=== PATIENT | male | born 1965 | race Two or more races ===

== ENCOUNTER 2024-09-15 09:00 | Inpatient (IN) | payer OTHER ==
[~2024-09-15] VITALS: Ht 182.9 cm; Wt 113.4 kg
[2024-09-15] MEDS ORDERED: AVAPRO300 MG PO (11:28)
[2024-09-17 15:10] LABS: COL EPI 97 SECONDS (82-175)
[2024-09-21] MEDS ORDERED: LIDOCAINE HCL 1%/EPINEPHRINE 20ML VIAL IJ ONE (07:39)
[2024-09-21] MEDS ORDERED: BUPIVACAINE HCL/MPF 0.5% 30ML VIAL ONE (07:39)
[2024-09-21] MEDS ORDERED: CEFTRIAXONE SODIUM 2,000 MG VIAL ONE (07:40)
[2024-09-21] MEDS ORDERED: METRONIDAZOLE/SODIUM CHLORIDE 500 MG/100 ML PIGGYBACK IV ONE (07:40)
[2024-09-21] MEDS ORDERED: OxyCODONE HCL 5 MG TABLET (ROXICODONE) PO PRN (11:00)
[2024-09-21] MEDS ORDERED: SUGAMMADEX SODIUM 200 MG/2 ML VIAL IV ONE (11:00)
[2024-09-21] MEDS ORDERED: ONDANSETRON HCL 2 MG/ML VIAL IV PRN (11:00)
[2024-09-21] MEDS ORDERED: MORPHINE SULFATE 4 MG/ML CARTRIDGE IV PRN (11:00)
[2024-09-21] MEDS ORDERED: RINGERS SOLUTION,LACTATED 1,000 ML IV SCH (11:00)
[2024-09-21] MEDS ORDERED: MORPHINE SULFATE 4 MG/ML VIAL IV ONE ×3 (12:00→13:00)
[2024-09-21] MEDS ORDERED: ONDANSETRON HCL 2 MG/ML VIAL ONE (12:01)
[2024-09-21] MEDS ORDERED: ONDANSETRON HCL 2 MG/ML VIAL IV ONE (12:05)
[2024-09-21] MEDS ORDERED: HYOSCYAMINE SULFATE 0.125 MG TAB.SUBL SL SCH (13:00)
[2024-09-21] MEDS ORDERED: SIMETHICONE 125 MG CAPSULE PO SCH (13:00)
[2024-09-21 13:04] LABS: HEMATOCRIT 41.7 % (39.0-48.0); HEMOGLOBIN 13.2 g/dL (13-16.00); MEAN CELL VOLUME 78.5 fL (80.0-100.00); MEAN CORPUSCULAR HEMOGLOBIN 24.9 pg (27.00-32.0); MEAN CORPUSCULAR HGB CONC 31.7 g/dl (32.0-36.0); RED BLOOD COUNT 5.31 M/uL (4.00-6.00)
[2024-09-21 13:06] LABS: PLATELET COUNT 105 K/uL (150-450)
[2024-09-21 13:13] LABS: RED CELL DISTRIBUTION WIDTH 19.7 % (11.5-14.5)
[2024-09-21] MEDS ORDERED: ACETAMINOPHEN 500 MG GEL..CAP PO SCH (14:00)
[2024-09-21] MEDS ORDERED: HYOSCYAMINE SULFATE 0.125 MG TAB.SUBL ONE (14:34)
[2024-09-21 14:50] VITALS: BP 138/77; O2SAT 95
[2024-09-21] MEDS ORDERED: METOCLOPRAMIDE HCL 5 MG/ML VIAL IV SCH (17:00)
[2024-09-21] MEDS ORDERED: GABAPENTIN 300 MG CAPSULE PO SCH (17:00)
[2024-09-21] MEDS ORDERED: ENALAPRILAT DIHYDRATE 1.25 MG/ML VIAL IV PRN (17:00)
[2024-09-21] MEDS ORDERED: POLYETHYLENE GLYCOL 3350 17 GM BLIST.PACK PO SCH (17:00)
[2024-09-21] MEDS ORDERED: CELECOXIB 200 MG CAPSULE PO SCH (17:00)
[2024-09-21] MEDS ORDERED: MORPHINE SULFATE 2 MG/ML CARTRIDGE IV STA (18:02)
[2024-09-21] MEDS ORDERED: MORPHINE SULFATE 2 MG,MORPHINE SULFATE 4 MG IV PRN (18:15)
[2024-09-21] MEDS ORDERED: MORPHINE SULFATE 4 MG/ML VIAL IV PRN (18:15)
[2024-09-21] MEDS ORDERED: KETOROLAC TROMETHAMINE 60 MG VIAL IM NR (18:15)
[2024-09-21 19:11] VITALS: BP 131/85; O2SAT 95
[2024-09-21] MEDS ORDERED: FAMOTIDINE/PF 20 MG/2 ML VIAL IV PUSH SCH (21:00)
[2024-09-22 00:07] VITALS: BP 92/55; O2SAT 95
[2024-09-22 08:08] LABS: HEMATOCRIT 42.1 % (39.0-48.0); HEMOGLOBIN 14.2 g/dL (13-16.00); MEAN CELL VOLUME 76.8 fL (80.0-100.00); MEAN CORPUSCULAR HEMOGLOBIN 25.9 pg (27.00-32.0); MEAN CORPUSCULAR HGB CONC 33.7 g/dl (32.0-36.0); RED BLOOD COUNT 5.48 M/uL (4.00-6.00); RED CELL DISTRIBUTION WIDTH 19.9 % (11.5-14.5)
[2024-09-22 08:47] LABS: PLATELET COUNT 100 K/uL (150-450)
[2024-09-22 08:48] LABS: MANUAL PLATELET COUNT 100
[2024-09-22 08:57] LABS: ALBUMIN 2.7 gm/dL (3.4-5.0); CALCIUM 7.9 mg/dL (8.5-10.1); CREATININE SERUM 1.71 mg/dL (0.70-1.30); GFR 40.9; MAGNESIUM 1.5 mg/dL (1.8-2.4); PHOSPHOROUS 3.3 mg/dL (2.5-4.9); POTASSIUM 4.99 mEq/L (3.5-5.1)
[2024-09-22] MEDS ORDERED: IRBESARTAN 300 MG TABLET PO SCH (09:00)
[2024-09-22] MEDS ORDERED: LACTOBACILLUS ACIDOPHILUS 1 CAP CAP PO SCH (09:00)
[2024-09-22] MEDS ORDERED: LACTULOSE 20 G/30 ML BLIST.PACK PO SCH (09:00)
[2024-09-22 10:00] VITALS: BP 96/56; O2SAT 99
[2024-09-22] MEDS ORDERED: TAMSULOSIN HCL 0.4 MG CAP PO STA (14:00)
[2024-09-22] MEDS ORDERED: hydrALAZINE HCL 20 MG VIAL IV PRN (14:00)
[2024-09-22] MEDS ORDERED: MAGNESIUM SULFATE IN WATER 50 ML IV NR (15:30)
[2024-09-22 16:00] VITALS: BP 97/67; O2SAT 95
[2024-09-22] MEDS ORDERED: ENOXAPARIN SODIUM 40 MG/0.4 ML SYRINGE SUBCUTANEO SCH (17:00)
[2024-09-23 00:15] VITALS: BP 80/60; O2SAT 94
[2024-09-23] MEDS ORDERED: 0.9 % SODIUM CHLORIDE 1,000 ML IV SCH ×2 (03:45→13:00)
[2024-09-23 06:00] VITALS: BP 100/70; O2SAT 98
[2024-09-23] MEDS ORDERED: PANTOPRAZOLE SODIUM 40 MG/VIAL VIAL IV SCH (06:00)
[2024-09-23 08:00] VITALS: BP 95/64; O2SAT 90
[2024-09-23] MEDS ORDERED: ENOXAPARIN SODIUM 40 MG/0.4 ML SYRINGE SUBCUTANEO SCH (09:00)
[2024-09-23 12:11] LABS: HEMATOCRIT 41.9 % (39.0-48.0); MEAN CELL VOLUME 76.9 fL (80.0-100.00); MEAN CORPUSCULAR HEMOGLOBIN 25.7 pg (27.00-32.0); MEAN CORPUSCULAR HGB CONC 33.4 g/dl (32.0-36.0); RED BLOOD COUNT 5.44 M/uL (4.00-6.00); RED CELL DISTRIBUTION WIDTH 20.1 % (11.5-14.5)
[2024-09-23 12:13] LABS: PLATELET COUNT 123 K/uL (150-450)
[2024-09-23 13:24] LABS: CALCIUM 8.6 mg/dL (8.5-10.1); CREATININE SERUM 2.31 mg/dL (0.70-1.30); GFR 28.91; MAGNESIUM 2.4 mg/dL (1.8-2.4); PHOSPHOROUS 2.8 mg/dL (2.5-4.9); POTASSIUM 4.24 mEq/L (3.5-5.1)
[2024-09-23] MEDS ORDERED: TAMSULOSIN HCL 0.4 MG CAP PO SCH (21:00)
[2024-09-24 08:36] LABS: CREATININE SERUM 2.02 mg/dL (0.70-1.30); GFR 33.75; MAGNESIUM 2.4 mg/dL (1.8-2.4); PHOSPHOROUS 3.6 mg/dL (2.5-4.9); POTASSIUM 4.32 mEq/L (3.5-5.1)
[2024-09-24] MEDS ORDERED: ENOXAPARIN SODIUM 30 MG/0.3 ML SYRINGE SUBCUTANEO SCH (09:00)
[2024-09-24 09:33] VITALS: BP 105/59; O2SAT 98
[2024-09-24 16:10] VITALS: BP 115/70; O2SAT 98
[2024-09-24] MEDS ORDERED: TRAMADOL HCL 50 MG TABLET PO STA ×2 (17:18→18:04)
[2024-09-25 00:05] VITALS: BP 97/63; O2SAT 98
[2024-09-25] MEDS ORDERED: DIPHENHYDRAMINE HCL 12.5 MG/5 ML BLIST.PACK PO PRN (07:00)
[2024-09-25] MEDS ORDERED: DIPHENHYDRAMINE HCL 50 MG/ML VIAL 1ML IV PRN (08:15)
[2024-09-25 08:48] VITALS: BP 90/55; O2SAT 95
[2024-09-25] MEDS ORDERED: ENOXAPARIN SODIUM 40 MG/0.4 ML SYRINGE SUBCUTANEO SCH (09:00)
[2024-09-25 11:32] LABS: CALCIUM 8.7 mg/dL (8.5-10.1); CREATININE SERUM 1.78 mg/dL (0.70-1.30); GFR 39.05; PHOSPHOROUS 3.7 mg/dL (2.5-4.9); POTASSIUM 4.46 mEq/L (3.5-5.1)
[2024-09-25] MEDS ORDERED: 0.9 % SODIUM CHLORIDE 500 ML IV ONE (12:30)
[2024-09-25] MEDS ORDERED: MORPHINE SULFATE 2 MG/ML CARTRIDGE IV ONE (12:45)
[2024-09-25] MEDS ORDERED: KETOROLAC TROMETHAMINE 30 MG VIAL IM NR (16:00)
[2024-09-25 16:11] LABS: HEMATOCRIT 38.4 % (39.0-48.0); HEMOGLOBIN 12.8 g/dL (13-16.00); MEAN CELL VOLUME 77.2 fL (80.0-100.00); MEAN CORPUSCULAR HEMOGLOBIN 25.8 pg (27.00-32.0); MEAN CORPUSCULAR HGB CONC 33.4 g/dl (32.0-36.0); PLATELET COUNT 167 K/uL (150-450); RED BLOOD COUNT 4.98 M/uL (4.00-6.00); RED CELL DISTRIBUTION WIDTH 20.4 % (11.5-14.5)
[2024-09-25 16:16] VITALS: BP 102/73; O2SAT 97
[2024-09-26 01:09] VITALS: BP 110/70; O2SAT 100
[2024-09-26 08:00] VITALS: BP 101/57; O2SAT 98
[2024-09-26] MEDS ORDERED: KETOROLAC TROMETHAMINE 30 MG VIAL IM SCH (10:54)
[2024-09-26] MEDS ORDERED: MORPHINE SULFATE 2 MG/ML CARTRIDGE IV SCH (12:00)
[2024-09-26 16:41] VITALS: BP 120/65; O2SAT 95
[2024-09-26 23:54] VITALS: BP 124/59; O2SAT 97
[2024-09-27 08:08] VITALS: BP 86/50; O2SAT 97
[2024-09-27 09:21] VITALS: BP 106/72; O2SAT 96
[2024-09-27 15:54] VITALS: BP 108/63; O2SAT 100
[2024-09-27] MEDS ORDERED: FLUTICASONE PROPIONATE 50 MCG SPRAY NASAL SCH (17:00)
[2024-09-28] VITALS: BP 106/59; O2SAT 100
[2024-09-28 08:00] LABS: HEMATOCRIT 35.1 % (39.0-48.0); HEMOGLOBIN 11.5 g/dL (13-16.00); MEAN CELL VOLUME 78.9 fL (80.0-100.00); MEAN CORPUSCULAR HEMOGLOBIN 25.9 pg (27.00-32.0); MEAN CORPUSCULAR HGB CONC 32.9 g/dl (32.0-36.0); PLATELET COUNT 288 K/uL (150-450); RED BLOOD COUNT 4.45 M/uL (4.00-6.00); RED CELL DISTRIBUTION WIDTH 21.3 % (11.5-14.5)
[2024-09-28 08:08] LABS: BILIRUBIN TOTAL 0.69 mg/dL (0.3-1.2); CALCIUM 7.9 mg/dL (8.5-10.1); CREATININE SERUM 1.36 mg/dL (0.70-1.30); GFR 53.27; POTASSIUM 4.48 mEq/L (3.5-5.1)
[2024-09-28 08:20] VITALS: BP 83/59; O2SAT 100
[2024-09-28] MEDS ORDERED: DIATRIZOATE MEGLUMINE, SODIUM 30 ML BOTTLE PO NR (09:45)
[2024-09-28 16:00] VITALS: BP 110/80; O2SAT 97
[2024-09-28] MEDS ORDERED: AA 4.25%/CAL/LYTES/DEXT 5% 1,000 ML PERIFERAL SCH (17:00)
[2024-09-29] VITALS (8 sets, daily range): BP systolic 102–119; BP diastolic 59–86; O2SAT 96–100
[2024-09-29] MEDS ORDERED: HYOSCYAMINE SULFATE 0.125 MG TAB.SUBL SL STA (09:12)
[2024-09-29] MEDS ORDERED: AMIODARONE HCL 50 MG/ML AMPUL IV NR (10:00)
[2024-09-29 10:12] LABS: HEMATOCRIT 35.9 % (39.0-48.0); HEMOGLOBIN 11.6 g/dL (13-16.00); MEAN CELL VOLUME 79.1 fL (80.0-100.00); MEAN CORPUSCULAR HEMOGLOBIN 25.5 pg (27.00-32.0); MEAN CORPUSCULAR HGB CONC 32.2 g/dl (32.0-36.0); PLATELET COUNT 358 K/uL (150-450); RED BLOOD COUNT 4.54 M/uL (4.00-6.00); RED CELL DISTRIBUTION WIDTH 20.4 % (11.5-14.5)
[2024-09-29 10:18] LABS: ALBUMIN 2.1 gm/dL (3.4-5.0); BILIRUBIN TOTAL 0.81 mg/dL (0.3-1.2); CALCIUM 8.1 mg/dL (8.5-10.1); CREATININE SERUM 1.41 mg/dL (0.70-1.30); GFR 51.1; MAGNESIUM 1.9 mg/dL (1.8-2.4); PHOSPHOROUS 2.2 mg/dL (2.5-4.9); TOTAL PROTEIN 6.1 gm/dL (6.4-8.2)
[2024-09-29 10:20] LABS: T4 TOTAL 7.73 UG/DL (4.5-12.1)
[2024-09-29 11:25] LABS: T3 TOTAL 0.925 ng/ml (0.846-2.02)
[2024-09-29 11:28] LABS: PROCALCITONIN 14.31 ng/ml (0.020-0.080)
[2024-09-29] MEDS ORDERED: MORPHINE SULFATE 2 MG/ML CARTRIDGE IV PRN ×2 (11:45→21:49)
[2024-09-29] MEDS ORDERED: POTASSIUM PHOS,M-BASIC-D-BASIC 3 MM/ML VIAL IV NR (11:45)
[2024-09-29] MEDS ORDERED: PIPERACILLIN/TAZOBACTAM SODIUM 3.375 GM in DEXTROSE 5 % IN WATER 100 ML IV SCH (12:00)
[2024-09-29] MEDS ORDERED: LINEZOLID IN DEXTROSE 5% 300 ML IV SCH ×2 (12:14→21:00)
[2024-09-29] MEDS ORDERED: MEROPENEM 500 MG/VIAL VIAL IV SCH (12:41)
[2024-09-29] MEDS ORDERED: DILTIAZEM HCL 25 MG/5 ML VIAL IV ONE ×3 (21:25→22:15)
[2024-09-29] MEDS ORDERED: DILTIAZEM HCL 125MG/25ML VIAL IV ONE (21:34)
[2024-09-29] MEDS ORDERED: DILTIAZEM HCL 125 MG in 0.9 % SODIUM CHLORIDE 100 ML IV SCH (21:45)
[2024-09-29] MEDS ORDERED: PANTOPRAZOLE SODIUM 40 MG/VIAL VIAL IV STA (21:48)
[2024-09-30] VITALS (21 sets, daily range): BP systolic 97–128; BP diastolic 65–91; O2SAT 90–100
[2024-09-30 07:20] LABS: ALBUMIN 1.9 gm/dL (3.4-5.0); BILIRUBIN TOTAL 0.57 mg/dL (0.3-1.2); CALCIUM 7.6 mg/dL (8.5-10.1); CREATININE SERUM 1.27 mg/dL (0.70-1.30); GFR 57.65; GLOBULINA 3.1 G/DL (2.4-3.5); PHOSPHOROUS 2.8 mg/dL (2.5-4.9); POTASSIUM 4.53 mEq/L (3.5-5.1)
[2024-09-30 07:47] LABS: HEMOGLOBIN 10.9 g/dL (13-16.00); MEAN CELL VOLUME 78.4 fL (80.0-100.00); MEAN CORPUSCULAR HEMOGLOBIN 25.9 pg (27.00-32.0); MEAN CORPUSCULAR HGB CONC 33.1 g/dl (32.0-36.0); PLATELET COUNT 408 K/uL (150-450); RED BLOOD COUNT 4.21 M/uL (4.00-6.00); RED CELL DISTRIBUTION WIDTH 20.6 % (11.5-14.5)
[2024-09-30] MEDS ORDERED: PROMETHAZINE HCL 25 MG/ML AMPUL ONE (08:08)
[2024-09-30] MEDS ORDERED: PROMETHAZINE HCL 25 MG/ML AMPUL IM NR (08:15)
[2024-09-30] MEDS ORDERED: PROMETHAZINE HCL 25 MG/ML AMPUL IM ONE (08:15)
[2024-09-30] MEDS ORDERED: MEPERIDINE HCL/PF 25 MG/ML VIAL IM ONE (08:15)
[2024-09-30] MEDS ORDERED: PANTOPRAZOLE SODIUM 40 MG/VIAL VIAL IV SCH (09:00)
[2024-09-30] MEDS ORDERED: PROMETHAZINE HCL 25 MG/ML AMPUL IM PRN (11:15)
[2024-09-30] MEDS ORDERED: MEPERIDINE HCL/PF 25 MG/ML VIAL IM PRN (11:15)
[2024-09-30] MEDS ORDERED: ANIDULAFUNGIN 100 MG VIAL IV ONE (13:00)
[2024-09-30] MEDS ORDERED: DIATRIZOATE MEGLUMINE, SODIUM 30 ML BOTTLE PO STA (17:57)
[2024-09-30] MEDS ORDERED: MEROPENEM 1,000 MG VIAL IV SCH (20:00)
[2024-10-01] VITALS (19 sets, daily range): BP systolic 90–127; BP diastolic 65–94; O2SAT 92–100
[2024-10-01 07:15] LABS: HEMATOCRIT 32.5 % (39.0-48.0); HEMOGLOBIN 10.8 g/dL (13-16.00); MEAN CORPUSCULAR HEMOGLOBIN 25.6 pg (27.00-32.0); MEAN CORPUSCULAR HGB CONC 33.3 g/dl (32.0-36.0); PLATELET COUNT 415 K/uL (150-450); RED BLOOD COUNT 4.22 M/uL (4.00-6.00); RED CELL DISTRIBUTION WIDTH 20.8 % (11.5-14.5)
[2024-10-01 07:59] LABS: ALBUMIN 1.7 gm/dL (3.4-5.0); BILIRUBIN TOTAL 0.47 mg/dL (0.3-1.2); CALCIUM 7.8 mg/dL (8.5-10.1); CREATININE SERUM 1.17 mg/dL (0.70-1.30); GFR 63.38; GLOBULINA 3.2 G/DL (2.4-3.5); MAGNESIUM 2.3 mg/dL (1.8-2.4); PHOSPHOROUS 2.8 mg/dL (2.5-4.9); POTASSIUM 4.82 mEq/L (3.5-5.1); TOTAL PROTEIN 4.9 gm/dL (6.4-8.2)
[2024-10-01 09:48] LABS: PH,URINE 5.5 (5.0-8.0); URINE APPEARANCE Clear; URINE BILIRRUBIN Negative (NEGATIVE); URINE BLOOD Negative; URINE COLOR Yellow; URINE GLUCOSE Negative (NEGATIVE); URINE KETONE Negative (NEGATIVE); URINE LEUKOCYTE Negative; URINE NITRATE Negative; URINE PROTEIN 30 (NEGATIVE); URINE UROBILINOGEN 0.2 E.U./dl
[2024-10-01 09:49] LABS: URINE BACTERIA 12.2 uL (0.0-1933); URINE EPITHELIAL CELLS 5.2 uL (0.0-38.8); URINE RBC 6.7 uL (0.0-20.8); URINE WBC 7.4 uL (0.0-23.2)
[2024-10-01 09:51] LABS: URINE CAST 0.58 uL (0.0-1.40)
[2024-10-01] MEDS ORDERED: LORazepam 2 MG/ML VIAL IV STA (10:17)
[2024-10-01] MEDS ORDERED: LORazepam 2 MG/ML VIAL IV PRN (10:30)
[2024-10-01 11:12] LABS: PLATELET ESTIMATE NORMAL (NORMAL)
[2024-10-01] MEDS ORDERED: ANIDULAFUNGIN 100 MG VIAL IV SCH (12:00)
[2024-10-01] MEDS ORDERED: EMOLLIENTS 6 OZ BOTTLE TOP SCH (13:00)
[2024-10-01] MEDS ORDERED: LORazepam 2 MG/ML VIAL IV SCH (21:00)
[2024-10-02] VITALS (19 sets, daily range): BP systolic 83–122; BP diastolic 57–95; O2SAT 90–100
[2024-10-02 08:38] LABS: ALBUMIN 1.6 gm/dL (3.4-5.0); BILIRUBIN TOTAL 0.5 mg/dL (0.3-1.2); CALCIUM 8.1 mg/dL (8.5-10.1); CREATININE SERUM 1.08 mg/dL (0.70-1.30); GFR 69.51; GLOBULINA 3.2 G/DL (2.4-3.5); POTASSIUM 4.61 mEq/L (3.5-5.1); TOTAL PROTEIN 4.8 gm/dL (6.4-8.2)
[2024-10-03] VITALS (20 sets, daily range): BP systolic 70–107; BP diastolic 40–86; O2SAT 96–100
[2024-10-03 08:21] LABS: CALCIUM 7.8 mg/dL (8.5-10.1); CREATININE SERUM 1.1 mg/dL (0.70-1.30); GFR 68.05; MAGNESIUM 2.1 mg/dL (1.8-2.4); PHOSPHOROUS 3.5 mg/dL (2.5-4.9); POTASSIUM 4.55 mEq/L (3.5-5.1)
[2024-10-03 08:27] LABS: C-REACTIVE PROTEIN 13.1 MG/DL (0.00-0.29)
[2024-10-03 08:52] LABS: MEAN CELL VOLUME 77.3 fL (80.0-100.00); MEAN CORPUSCULAR HEMOGLOBIN 26.6 pg (27.00-32.0); MEAN CORPUSCULAR HGB CONC 34.4 g/dl (32.0-36.0); PLATELET COUNT 413 K/uL (150-450); RED BLOOD COUNT 4.13 M/uL (4.00-6.00); RED CELL DISTRIBUTION WIDTH 20.5 % (11.5-14.5)
[2024-10-03] MEDS ORDERED: METOPROLOL TARTRATE 25 MG TABLET PO SCH (13:43)
[2024-10-03] MEDS ORDERED: POLYETHYLENE GLYCOL 3350 17 GM BLIST.PACK PO SCH (17:00)
[2024-10-03] MEDS ORDERED: ALBUMIN HUMAN-25 0.25GM/ML (50ML) VIAL IV SCH (19:15)
[2024-10-04] VITALS (13 sets, daily range): BP systolic 86–110; BP diastolic 63–84; O2SAT 95–100
[2024-10-04 07:12] LABS: HEMATOCRIT 33.2 % (39.0-48.0); HEMOGLOBIN 11.1 g/dL (13-16.00); MEAN CELL VOLUME 77.2 fL (80.0-100.00); MEAN CORPUSCULAR HEMOGLOBIN 25.8 pg (27.00-32.0); MEAN CORPUSCULAR HGB CONC 33.5 g/dl (32.0-36.0); PLATELET COUNT 429 K/uL (150-450); RED CELL DISTRIBUTION WIDTH 20.4 % (11.5-14.5)
[2024-10-04 07:30] LABS: INR 1.4; PARTIAL THROMBOPLASTIN TIME 31.2 SECONDS (22.0-34.0); PROTHROMBIN TIME 14.9 SECONDS (9.0-11.5)
[2024-10-04] MEDS ORDERED: AMIODARONE HCL 200 MG TABLET PO SCH (09:00)
[2024-10-04] MEDS ORDERED: FUROsemide 20 MG/2 ML VIAL IV SCH (09:11)
[2024-10-04] MEDS ORDERED: ALBUMIN HUMAN 100 ML VIAL IV SCH (09:12)
[2024-10-04 12:48] LABS: ALBUMIN 1.9 gm/dL (3.4-5.0); BILIRUBIN TOTAL 0.53 mg/dL (0.3-1.2); BILIRUBIN,CONJUGATED 0.18 mg/dL (0.0-0.2); BILIRUBIN,UNCONJUGATED 0.35 mg/dL (0.0-0.6); CALCIUM 8.4 mg/dL (8.5-10.1); CHOL HDL RATIO 5.8 (0-5.0); CREATININE SERUM 1.24 mg/dL (0.70-1.30); GFR 59.26; GLOBULINA 3.2 G/DL (2.4-3.5); MAGNESIUM 2.1 mg/dL (1.8-2.4); PHOSPHOROUS 3.1 mg/dL (2.5-4.9); POTASSIUM 4.97 mEq/L (3.5-5.1); TOTAL PROTEIN 5.1 gm/dL (6.4-8.2)
[2024-10-04] MEDS ORDERED: METOPROLOL TARTRATE 50 MG TABLET PO SCH (13:00)
[2024-10-04 13:01] LABS: UREA CLEARANCE 68.7 ML/MIN
[2024-10-04] MEDS ORDERED: ENOXAPARIN SODIUM 100 MG/ML SYRINGE SUBCUTANEO SCH (21:00)
[2024-10-05] MEDS ORDERED: DIGOXIN 0.25 MG/ML AMPUL IV SCH (01:00)
[2024-10-05 04:00] VITALS: BP 81/67; O2SAT 100
[2024-10-05 07:43] VITALS: BP 98/78; O2SAT 98
[2024-10-05 11:59] VITALS: BP 99/63; O2SAT 100
[2024-10-05 16:27] VITALS: BP 97/59; O2SAT 100
[2024-10-05 19:40] VITALS: BP 95/76; O2SAT 28
[2024-10-05 20:45] VITALS: BP 91/67; O2SAT 99
[2024-10-06 00:51] VITALS: BP 100/54
[2024-10-06 06:52] LABS: HEMATOCRIT 35.4 % (39.0-48.0); HEMOGLOBIN 11.9 g/dL (13-16.00); MEAN CELL VOLUME 77.4 fL (80.0-100.00); MEAN CORPUSCULAR HGB CONC 33.6 g/dl (32.0-36.0); PLATELET COUNT 417 K/uL (150-450); RED BLOOD COUNT 4.57 M/uL (4.00-6.00); RED CELL DISTRIBUTION WIDTH 20.5 % (11.5-14.5)
[2024-10-06 07:12] LABS: ALBUMIN 2.1 gm/dL (3.4-5.0); BILIRUBIN TOTAL 0.73 mg/dL (0.3-1.2); CALCIUM 8.2 mg/dL (8.5-10.1); CREATININE SERUM 1.33 mg/dL (0.70-1.30); GFR 54.66; GLOBULINA 3.3 G/DL (2.4-3.5); MAGNESIUM 2.2 mg/dL (1.8-2.4); TOTAL PROTEIN 5.4 gm/dL (6.4-8.2)
[2024-10-06 07:15] LABS: C-REACTIVE PROTEIN 11.9 MG/DL (0.00-0.29)
[2024-10-06 07:16] LABS: POTASSIUM 5.27 mEq/L (3.5-5.1)
[2024-10-06 08:00] VITALS: BP 112/60; O2SAT 96
[2024-10-06] MEDS ORDERED: AMINO ACIDS 1 EACH TABLET PO SCH (09:00)
[2024-10-06 19:49] VITALS: BP 95/56; O2SAT 97
[2024-10-06] MEDS ORDERED: GABAPENTIN 300 MG CAPSULE PO STA (20:05)
[2024-10-07 02:00] VITALS: BP 91/72; O2SAT 95
[2024-10-07 08:00] VITALS: BP 99/65; O2SAT 98
[2024-10-07 17:25] VITALS: BP 132/72; O2SAT 98
[2024-10-07] MEDS ORDERED: POLYETHYLENE GLYCOL 3350 17 GM BLIST.PACK PO SCH (18:06)
[2024-10-08 01:24] VITALS: BP 149/75; O2SAT 96
== END 2024-10-08 13:56 | disposition home or self-care (01) | DRG 329 ==
LOC: O/R 09-21 05:15 → SURG 09-21 08:47 → SURH 09-21 09:00 → ICU 09-29 20:54 → SURG 10-05 20:34
PROVIDERS: Internal Medicine; Internal Medicine Geriatric Medicine; Internal Medicine Infectious Disease; ADMIT Colon & Rectal Surgery; ATTEND Colon & Rectal Surgery
PROC: 0DTP4ZZ Resection of Rectum, Percutaneous Endoscopic Approach (ICD-10-PCS; 2024-09-21)
PROC: 07BC4ZX Excision of Pelvis Lymphatic, Percutaneous Endoscopic Approach, Diagnostic (ICD-10-PCS; 2024-09-21)
PROC: 8E0W4CZ Robotic Assisted Procedure of Trunk Region, Percutaneous Endoscopic Approach (ICD-10-PCS; 2024-09-21)
PROC: 0D1B4Z4 Bypass Ileum to Cutaneous, Percutaneous Endoscopic Approach (ICD-10-PCS; principal; 2024-09-21 15:30)
PROC: BT4JZZZ Ultrasonography of Kidneys and Bladder (ICD-10-PCS; 2024-09-23)
PROC: BW21YZZ Computerized Tomography (CT Scan) of Abdomen and Pelvis using Other Contrast (ICD-10-PCS; 2024-09-28)
PROC: B24BYZZ Ultrasonography of Heart with Aorta using Other Contrast (ICD-10-PCS; 2024-09-29)
PROC: 02HV33Z Insertion of Infusion Device into Superior Vena Cava, Percutaneous Approach (ICD-10-PCS; 2024-09-29)
PROC: 4A12X4Z Monitoring of Cardiac Electrical Activity, External Approach (ICD-10-PCS; 2024-09-29)
PROC: 5A1945Z Respiratory Ventilation, 24-96 Consecutive Hours (ICD-10-PCS; 2024-09-30)
PROC: BW21YZZ Computerized Tomography (CT Scan) of Abdomen and Pelvis using Other Contrast (ICD-10-PCS; 2024-09-30)
PROC: 0D9670Z Drainage of Stomach with Drainage Device, Via Natural or Artificial Opening (ICD-10-PCS; 2024-10-01)
DX: C20 Malignant neoplasm of rectum (principal); A41.9 Sepsis, unspecified organism; R65.20 Severe sepsis without septic shock; I48.92 Unspecified atrial flutter; N17.9 Acute kidney failure, unspecified; J98.11 Atelectasis; R06.03 Acute respiratory distress; R00.0 Tachycardia, unspecified; R60.9 Edema, unspecified; I48.91 Unspecified atrial fibrillation; D69.6 Thrombocytopenia, unspecified
CPT/HCPCS: 44207; 44213; 38570; 38571; 44187; 76770; 76497; 93799 ×2; 74177; 36573; S2900

== ENCOUNTER 2024-10-11 01:16 | Inpatient (IN) | payer OTHER ==
[2024-10-11] VITALS (16 sets, daily range): BP systolic 89–130; BP diastolic 57–89; O2SAT 100
[~2024-10-11] VITALS: Ht 188 cm; Wt 90.7 kg
[~2024-10-11 01:16] MED LIST: AVAPRO300 MG PO
[2024-10-11] MEDS ORDERED: 0.9 % SODIUM CHLORIDE 2,000 ML IV ONE (01:30)
[2024-10-11 02:01] LABS: HEMATOCRIT 32.1 % (39.0-48.0); HEMOGLOBIN 10.5 g/dL (13-16.00); MEAN CELL VOLUME 79.3 fL (80.0-100.00); MEAN CORPUSCULAR HEMOGLOBIN 25.8 pg (27.00-32.0); MEAN CORPUSCULAR HGB CONC 32.6 g/dl (32.0-36.0); PLATELET COUNT 430 K/uL (150-450); RED BLOOD COUNT 4.05 M/uL (4.00-6.00); RED CELL DISTRIBUTION WIDTH 20.5 % (11.5-14.5)
[2024-10-11 02:09] LABS: INR 1.3; PARTIAL THROMBOPLASTIN TIME 29.7 SECONDS (22.0-34.0); PROTHROMBIN TIME 13.9 SECONDS (9.0-11.5)
[2024-10-11] MEDS ORDERED: FAMOTIDINE/PF 20 MG/2 ML VIAL IV PUSH STA (02:10)
[2024-10-11] MEDS ORDERED: MEPERIDINE HCL/PF 25 MG/ML VIAL IM STA (02:10)
[2024-10-11] MEDS ORDERED: FAMOTIDINE/PF 20 MG/2 ML VIAL ONE (02:14)
[2024-10-11] MEDS ORDERED: MEPERIDINE HCL 25 MG/ML AMPUL IM STA (02:15)
--- NOTE | 2024-10-11 02:17 | NUR ---
PTE ALERTA Y ORIENTADO X 3 ESFERAS EN COMPANIA DE FAMILIAR RECIBIDO EN AMBULANCIA QUIEN REFIERE SANGR[place]O RECTAL PROFUSO QUE COMENZO HACE UNAS HORAS.SE OBSERVA SANGR[place]O ARIZA BRILLANTE MYRNA,PTE PALIDO Y REFIERE NO SENTIR EXTREMIDADES.NO PRESENTA DIFICULTAD RESP,SE UBICA EN AREA DE CPU,SE CONECTA A MONITOR CARDIACO Y OXIMETRIA.SE LE COLOCA CANULA NASAL @ 2LTS,SE CANALIZA Y SE ADMINISTRAN 2 LITROS DE .9NSS STEPHENIE ORDEN MEDICA.SE EXTRAEN MUESTRAS,SE CAMBIA PTE DE ROPA Y PANAL,SE INSERTA DE LEON.SE REQUISAN POR MS MORA 2 UNIDADES DE PRC Y 4 UNIDADES DE PLASMA.SE REALIZA EKG Y SE SARAH BAJO OBSERVACION POR CAMBIOS.
[2024-10-11 02:42] LABS: URINE APPEARANCE Clear; URINE BILIRRUBIN Negative (NEGATIVE); URINE BLOOD Negative; URINE COLOR Yellow; URINE GLUCOSE Negative (NEGATIVE); URINE KETONE Negative (NEGATIVE); URINE LEUKOCYTE Negative; URINE NITRATE Negative; URINE PROTEIN Negative (NEGATIVE); URINE UROBILINOGEN 0.2 E.U./dl
[2024-10-11 02:46] LABS: URINE BACTERIA 8.5 uL (0.0-1933); URINE RBC 3.8 uL (0.0-20.8)
[2024-10-11 02:51] LABS: ob POSITIVE (NEGATIVE)
[2024-10-11 02:52] LABS: URINE CAST 0.14 uL (0.0-1.40); URINE EPITHELIAL CELLS 1.2 uL (0.0-38.8); URINE WBC 1.4 uL (0.0-23.2)
[2024-10-11 03:08] LABS: ALBUMIN 2.3 gm/dL (3.4-5.0); BILIRUBIN TOTAL 0.68 mg/dL (0.3-1.2); CALCIUM 8.4 mg/dL (8.5-10.1); CREATININE SERUM 1.77 mg/dL (0.70-1.30); GFR 39.3; GLOBULINA 3.8 G/DL (2.4-3.5); POTASSIUM 3.75 mEq/L (3.5-5.1); TOTAL PROTEIN 6.1 gm/dL (6.4-8.2)
[2024-10-11 03:34] LABS: FECAL LEUKOCYTES POSITIVE (NEGATIVE)
[2024-10-11] MEDS ORDERED: NOREPINEPHRINE BITARTRATE 1 MG/ML AMPUL IV ONE ×4 (03:42→14:46)
[2024-10-11] MEDS ORDERED: NOREPINEPHRINE BITARTRATE 8 MG in DEXTROSE 5 % IN WATER 250 ML IV SCH (03:45)
[2024-10-11] MEDS ORDERED: MEPERIDINE HCL/PF 25 MG/ML VIAL IV STA (04:05)
--- NOTE | 2024-10-11 04:47 | NUR ---
ORDENA QUE CT ABDOMEN PELVICO IV NO SE REALICE YA QUE PACIENTE SE ENCUENTRA INESTABLE EN ESTOS MOMENTOS.
--- NOTE | 2024-10-11 05:00 | NUR ---
0500AM- SE BUSCA SEGUNDA UNIDAD DE PRBC UNIVERSAL. 0510AM- SE COMIENZA A TRANSFUNDIR SEGUNDA UNIDAD. 0520- SE REALIZA CAMBIO DE PANAL. SE PROVEE COMODIDAD. 0555AM- SE BUSCA 4 PLASMAS. 0600AM- SE COMIENZA A TRANSFUNDIR UNIDADES DE PLAMAS.
[2024-10-11] MEDS ORDERED: AMINOCAPROIC ACID 250 MG/ML VIAL IV STA ×2 (05:44→12:03)
--- NOTE | 2024-10-11 06:10 | NUR ---
02:20AM SE LE INSERTA DE LEON BAJO MEDIDAS ASEPTICAS,ORINA AMARILLA DANIEL CON 1,000ML DE EGRESO.SE LE REALIZA CAMBIO DE PANAL,PTE CON SANGRADO ACTIVO Y COAGULOS. 3:20AM SE COMIENZA UNIDAD DE PRBC UNIVERSAL O NEGATIVO.SE REALIZA CAMBIO DE PANAL. 3:30AM SE REALIZA CAMBIO DE PANAL,SANGRADO CONTINUA,SE OBSERVA HEMATURIA Y SANGRADO EN EL PENE. 3:45AM SE COMIENZA DRIP DE LEVOPHED.PTE PRESENTA HIPOTENSION. 4:30AM PTE CONTINUA CON SANGRADO.SE REALIZA CAMBIO DE PANAL. 5:30AM SE REALIZA CAMBIO DE PANAL. DR TOUS EVALUA PTE.
--- NOTE | 2024-10-11 06:45 | NUR ---
SE ADMINISTRA MEDICAMENTO STEPHENIE ORDEN MEDICA. SE SARAH A PACIENTE EN CAMA CON BARANDAS ELEVADAS POR SEGURIDAD. CONECTADO A MOMITOR CARDIACO,OXIMETRIA DE PULSO Y ASISTIDO POR MIGUEL CANULA NASAL A 3LTS.
[2024-10-11] MEDS ORDERED: MEPERIDINE HCL/PF 50 MG/ML VIAL IV ONE (08:00)
--- NOTE | 2024-10-11 08:10 | NUR ---
0700- PACIENTE EN CAMA POSICION SEMISENTADA, BARANDAS ELEVADAS Y TIMBRE ASCESI- BLE. ALERTA Y ORIENTADO. CANULA NASAL A 3 LITROS, RR-20, SAT-100%. EXTREMIDA- DAVID SUPERIORES LIBRES DE EDEMA. SALINE LOCK EN MANO Y ANTEBRAZO DERECHO ANGIO 18 Y BRAZO MARK ANGIO 18 AREA MARYANN DE SIGNOS DE INFECCION RECIBIENDO 0.9 NSS 1,000 ML A 200 ML/HR. LEVOPHED 8 MG/250 ML D5W% A 50 ML/HR. UNIDAD DE PLASMA A FULL DRIP. HR-87 RITMO SINUSAL. ABDOMEN DEPRESIBLE CON PERISTALSIS PRESENTE AL MOMENTO. ILEOSTOMIA PANTENTE CON BOLSA COLECTORA EN CUADRANTE INFERIOR DERECHO ABDOMINAL. SONDA URINARIA PATENTE HEMATURIA. EXTREMIDADES INFERIORES LIBRES DE EDEMA.
[2024-10-11] MEDS ORDERED: LIDOCAINE 5% 1 PATCH ADH. TOP ONE (09:15)
[2024-10-11] MEDS ORDERED: 0.9 % SODIUM CHLORIDE 1,000 ML IV SCH (10:30)
[2024-10-11] MEDS ORDERED: PANTOPRAZOLE SODIUM 40 MG/VIAL VIAL IV SCH (10:37)
[2024-10-11] MEDS ORDERED: SODIUM CHLORIDE 0.9% IV SCH (13:30)
[2024-10-11] MEDS ORDERED: AMINOCAPROIC ACID IV SCH (13:30)
[2024-10-11] MEDS ORDERED: PROPOFOL 10,000 MCG/ML VIAL ONE (14:03)
[2024-10-11 14:13] LABS: MEAN CELL VOLUME 85.5 fL (80.0-100.00); MEAN CORPUSCULAR HGB CONC 32.6 g/dl (32.0-36.0); PLATELET COUNT 216 K/uL (150-450); RED BLOOD COUNT 2.52 M/uL (4.00-6.00); RED CELL DISTRIBUTION WIDTH 18.8 % (11.5-14.5)
[2024-10-11 14:15] LABS: HEMATOCRIT 21.5 % (39.0-48.0); MEAN CORPUSCULAR HEMOGLOBIN 27.7 pg (27.00-32.0)
[2024-10-11] MEDS ORDERED: MIDAZOLAM HCL 100 MG in 0.9 % SODIUM CHLORIDE 100 ML IV SCH (14:30)
[2024-10-11] MEDS ORDERED: MIDAZOLAM HCL 2 MG/2 ML VIAL IV PUSH ONE (15:15)
[2024-10-11] MEDS ORDERED: PROPOFOL 10,000 MCG/ML VIAL IV PUSH ONE (15:15)
[2024-10-11 15:42] LABS: COL EPI 67 SECONDS (82-175)
[2024-10-11] MEDS ORDERED: PHENYLEPHRINE HCL 20 MG in 0.9 % SODIUM CHLORIDE 250 ML IV SCH (16:45)
[2024-10-11] MEDS ORDERED: ANIDULAFUNGIN 100 MG VIAL IV NR (17:00)
[2024-10-11] MEDS ORDERED: EMOLLIENT COMBINATION NO.92 2.5 OZ BOTTLE TOP SCH (17:00)
[2024-10-11] MEDS ORDERED: LINEZOLID IN DEXTROSE 5% 300 ML IV SCH (17:00)
[2024-10-11] MEDS ORDERED: MEROPENEM 1,000 MG VIAL IV SCH (17:00)
[2024-10-11 17:26] LABS: FIBRINOGEN 294 mg/dL (187.0-446.0)
[2024-10-11] MEDS ORDERED: AMINOCAPROIC ACID 20 MG/ML ML IV SCH (18:00)
[2024-10-11] MEDS ORDERED: AMINOCAPROIC ACID 250 MG/ML VIAL IV SCH (18:00)
[2024-10-11 18:17] LABS: INR 1.2; PROTHROMBIN TIME 12.9 SECONDS (9.0-11.5)
[2024-10-11] MEDS ORDERED: MIDAZOLAM HCL 2 MG/2 ML VIAL IV PUSH STA (18:18)
[2024-10-11] MEDS ORDERED: FUERA DE FORMULARIO 1 U FF IV NR ×2 (18:45→19:45)
[2024-10-11] MEDS ORDERED: CALCIUM GLUCONATE 100 MG/ML VIAL IV NR (19:15)
[2024-10-11] MEDS ORDERED: POLYVINYL ALCOHOL 15 ML DROPS OP SCH (19:53)
[2024-10-11] MEDS ORDERED: FentaNYL CITRATE/PF 1,000 MCG in 0.9 % SODIUM CHLORIDE 100 ML IV SCH (20:45)
[2024-10-11] MEDS ORDERED: CHLORHEXIDINE GLUCONATE 15ML BRUSH KIT MM SCH (21:00)
[2024-10-11 22:30] LABS: ABG PH 7.386 (7.35-7.45); ABG pCO2 29.5 mmHg (35-45)
[2024-10-11 22:31] LABS: ABG PO2 522.2 mmHg (80-100); BASE EXCESS -6.3 mmol/l; BICARBONATE 17.3 mmol/l (23-25); Tco2 18.2 mmol/l; o2 100 %
[2024-10-11 22:40] LABS: allen test SATISFACTORY; puncture site RADIAL LEFT
[2024-10-12] VITALS (14 sets, daily range): BP systolic 92–113; BP diastolic 61–67; O2SAT 100
[2024-10-12 08:18] LABS: ABG PH 7.316 (7.35-7.45); ABG PO2 105.1 mmHg (80-100); ABG pCO2 36.2 mmHg (35-45); BASE EXCESS -7.3 mmol/l; SaO2 97.2 %; Tco2 19.2 mmol/l
[2024-10-12 10:00] LABS: allen test SATISFACTORY; o2 50 %; puncture site RADIAL LEFT
[2024-10-12] MEDS ORDERED: ANIDULAFUNGIN 100 MG VIAL IV SCH (17:00)
[2024-10-12 19:33] LABS: HEMATOCRIT 24.3 % (39.0-48.0); HEMOGLOBIN 8.3 g/dL (13-16.00); MEAN CELL VOLUME 85.7 fL (80.0-100.00); MEAN CORPUSCULAR HEMOGLOBIN 29.2 pg (27.00-32.0); MEAN CORPUSCULAR HGB CONC 34.1 g/dl (32.0-36.0); PLATELET COUNT 141 K/uL (150-450); RED BLOOD COUNT 2.84 M/uL (4.00-6.00); RED CELL DISTRIBUTION WIDTH 16.4 % (11.5-14.5)
[2024-10-12 22:30] LABS: ALBUMIN 1.9 gm/dL (3.4-5.0); BILIRUBIN TOTAL 0.6 mg/dL (0.3-1.2); CALCIUM 7.6 mg/dL (8.5-10.1); CREATININE SERUM 2.32 mg/dL (0.70-1.30); GFR 28.76; GLOBULINA 2.7 G/DL (2.4-3.5); POTASSIUM 4.35 mEq/L (3.5-5.1); TOTAL PROTEIN 4.6 gm/dL (6.4-8.2)
[2024-10-13] VITALS (15 sets, daily range): BP systolic 94–115; BP diastolic 56–68; O2SAT 100
[2024-10-13] MEDS ORDERED: FUROsemide 20 MG/2 ML VIAL IV STA (09:55)
[2024-10-13] MEDS ORDERED: FUROsemide 20 MG/2 ML VIAL IV SCH (10:00)
[2024-10-13 10:59] LABS: HEMATOCRIT 25.7 % (39.0-48.0); HEMOGLOBIN 9.2 g/dL (13-16.00); MEAN CELL VOLUME 85.7 fL (80.0-100.00); MEAN CORPUSCULAR HEMOGLOBIN 30.7 pg (27.00-32.0); MEAN CORPUSCULAR HGB CONC 35.8 g/dl (32.0-36.0); PLATELET COUNT 140 K/uL (150-450)
[2024-10-13 11:26] LABS: ALBUMIN 1.9 gm/dL (3.4-5.0); BILIRUBIN TOTAL 0.48 mg/dL (0.3-1.2); C-REACTIVE PROTEIN 5.37 MG/DL (0.00-0.29); CALCIUM 7.6 mg/dL (8.5-10.1); CREATININE SERUM 1.85 mg/dL (0.70-1.30); GFR 37.35; GLOBULINA 3.1 G/DL (2.4-3.5); MAGNESIUM 2.4 mg/dL (1.8-2.4); PHOSPHOROUS 2.4 mg/dL (2.5-4.9); POTASSIUM 4.09 mEq/L (3.5-5.1)
[2024-10-13 11:49] LABS: ABG PH 7.378 (7.35-7.45); ABG PO2 122.9 mmHg (80-100); ABG pCO2 40.5 mmHg (35-45); BASE EXCESS -1.7 mmol/l; BICARBONATE 23.3 mmol/l (23-25); SaO2 98.6 %; Tco2 24.5 mmol/l
[2024-10-13 11:50] LABS: allen test SATISFACTORY; o2 35 %; puncture site RADIAL LEFT
[2024-10-13] MEDS ORDERED: POTASSIUM PHOS,M-BASIC-D-BASIC 3 MM/ML VIAL IV NR (12:30)
[2024-10-13 19:12] LABS: HEMATOCRIT 34.2 % (39.0-48.0); HEMOGLOBIN 11.6 g/dL (13-16.00); MEAN CELL VOLUME 87.3 fL (80.0-100.00); MEAN CORPUSCULAR HEMOGLOBIN 29.5 pg (27.00-32.0); MEAN CORPUSCULAR HGB CONC 33.8 g/dl (32.0-36.0); PLATELET COUNT 148 K/uL (150-450); RED BLOOD COUNT 3.92 M/uL (4.00-6.00); RED CELL DISTRIBUTION WIDTH 16.6 % (11.5-14.5)
[2024-10-14] VITALS (14 sets, daily range): BP systolic 94–134; BP diastolic 51–81; O2SAT 99–100
[2024-10-14 08:30] LABS: ABG PH 7.393 (7.35-7.45); ABG PO2 119.9 mmHg (80-100); ABG pCO2 43.4 mmHg (35-45); BASE EXCESS 0.7 mmol/l; BICARBONATE 25.9 mmol/l (23-25); SaO2 98.6 %; Tco2 27.2 mmol/l
[2024-10-14 08:47] LABS: allen test NO SATISFACTORY; o2 35 %; puncture site RADIAL RIGHT
[2024-10-14 11:57] LABS: HEMATOCRIT 30.5 % (39.0-48.0); HEMOGLOBIN 10.3 g/dL (13-16.00); MEAN CORPUSCULAR HGB CONC 33.7 g/dl (32.0-36.0); PLATELET COUNT 165 K/uL (150-450); RED BLOOD COUNT 3.43 M/uL (4.00-6.00)
[2024-10-14 12:31] LABS: BILIRUBIN TOTAL 0.45 mg/dL (0.3-1.2); CALCIUM 7.7 mg/dL (8.5-10.1); CREATININE SERUM 1.24 mg/dL (0.70-1.30); GFR 59.26; GLOBULINA 3.2 G/DL (2.4-3.5); MAGNESIUM 2.2 mg/dL (1.8-2.4); POTASSIUM 4.11 mEq/L (3.5-5.1); TOTAL PROTEIN 5.2 gm/dL (6.4-8.2)
[2024-10-14 12:43] LABS: PHOSPHOROUS 1.8 mg/dL (2.5-4.9)
[2024-10-14 13:20] LABS: ABG PH 7.376 (7.35-7.45); ABG pCO2 44.3 mmHg (35-45); BASE EXCESS -0.1 mmol/l; BICARBONATE 25.4 mmol/l (23-25); SaO2 96.9 %; Tco2 26.8 mmol/l
[2024-10-14 13:23] LABS: o2 35 %
[2024-10-14 13:24] LABS: allen test NO SATISFACTORY; puncture site RADIAL LEFT
[2024-10-14] MEDS ORDERED: POTASSIUM PHOS,M-BASIC-D-BASIC 3 MM/ML VIAL IV NR (13:45)
[2024-10-14] MEDS ORDERED: AMINOCAPROIC ACID 250 MG/ML VIAL IV STA (14:32)
[2024-10-14] MEDS ORDERED: RACEPINEPHRINE HCL 0.5 ML AMPUL IH ONE (15:17)
[2024-10-14 16:50] LABS: D DIMER 5.9 MG/L; INR 1.09; PARTIAL THROMBOPLASTIN TIME 28.8 SECONDS (22.0-34.0); PROTHROMBIN TIME 11.8 SECONDS (9.0-11.5)
[2024-10-14] MEDS ORDERED: CEFTRIAXONE SODIUM 2,000 MG VIAL IV SCH (17:00)
[2024-10-14] MEDS ORDERED: METRONIDAZOLE/SODIUM CHLORIDE 100 ML IV SCH (17:00)
[2024-10-14] MEDS ORDERED: PANTOPRAZOLE SODIUM 80 MG in 0.9 % SODIUM CHLORIDE 100 ML IV SCH (17:15)
[2024-10-14 17:30] LABS: ABG PH 7.362 (7.35-7.45); ABG pCO2 47.6 mmHg (35-45); BASE EXCESS 0.4 mmol/l; SaO2 97.6 %
[2024-10-14 17:31] LABS: BICARBONATE 26.4 mmol/l (23-25); Tco2 27.8 mmol/l; allen test SATISFACTORY; o2 40 %; puncture site RADIAL RIGHT
[2024-10-14] MEDS ORDERED: MENTHOL/CETYLPYRD CL 1 LOZENGE MM PRN (18:15)
[2024-10-14 19:10] LABS: COL EPI 62 SECONDS (82-175)
[2024-10-14] MEDS ORDERED: SOD FERRIC GLUC COMPLX/SUCROSE 62.5 MG/5 ML AMPUL IV SCH (19:33)
[2024-10-14] MEDS ORDERED: AMINOCAPROIC ACID 250 MG/ML VIAL IV NR (19:45)
[2024-10-14] MEDS ORDERED: AMINOCAPROIC ACID 250 MG/ML VIAL IV SCH (20:00)
[2024-10-15] VITALS (10 sets, daily range): BP systolic 108–130; BP diastolic 55–80; O2SAT 97–100
[2024-10-15 06:41] LABS: HEMATOCRIT 33.8 % (39.0-48.0); HEMOGLOBIN 11.4 g/dL (13-16.00); MEAN CELL VOLUME 88.3 fL (80.0-100.00); MEAN CORPUSCULAR HEMOGLOBIN 29.7 pg (27.00-32.0); MEAN CORPUSCULAR HGB CONC 33.6 g/dl (32.0-36.0); PLATELET COUNT 184 K/uL (150-450); RED BLOOD COUNT 3.83 M/uL (4.00-6.00); RED CELL DISTRIBUTION WIDTH 16.2 % (11.5-14.5)
[2024-10-15 07:14] LABS: BILIRUBIN TOTAL 0.53 mg/dL (0.3-1.2); CALCIUM 7.7 mg/dL (8.5-10.1); CREATININE SERUM 1.07 mg/dL (0.70-1.30); GFR 70.26; GLOBULINA 3.1 G/DL (2.4-3.5); MAGNESIUM 1.9 mg/dL (1.8-2.4); POTASSIUM 4.13 mEq/L (3.5-5.1); TOTAL PROTEIN 5.1 gm/dL (6.4-8.2)
[2024-10-15 07:27] LABS: PHOSPHOROUS 1.8 mg/dL (2.5-4.9)
[2024-10-15 09:07] LABS: ABG PH 7.465 (7.35-7.45); ABG PO2 85.6 mmHg (80-100); ABG pCO2 37.4 mmHg (35-45); BASE EXCESS 2.7 mmol/l; BICARBONATE 26.3 mmol/l (23-25); SaO2 97.2 %; Tco2 27.5 mmol/l
[2024-10-15 09:08] LABS: allen test SATISFACTORY; o2 36 %; puncture site RADIAL RIGHT
[2024-10-15] MEDS ORDERED: POTASSIUM PHOS,M-BASIC-D-BASIC 3 MM/ML VIAL IV ONE (10:00)
[2024-10-15] MEDS ORDERED: LACTOBACILLUS ACIDOPHILUS 1 CAP CAP PO SCH (13:19)
[2024-10-15] MEDS ORDERED: MELATONIN 5 MG TABLET PO SCH (21:00)
[2024-10-15] MEDS ORDERED: MORPHINE SULFATE 4 MG/ML VIAL IV STA (21:14)
[2024-10-15] MEDS ORDERED: MORPHINE SULFATE 4 MG/ML VIAL IV PRN (21:15)
[2024-10-16 04:02] VITALS: BP 116/63; O2SAT 100
[2024-10-16 07:00] VITALS: BP 117/70; O2SAT 100
[2024-10-16 07:52] LABS: CALCIUM 7.6 mg/dL (8.5-10.1); GFR 75.96; MAGNESIUM 1.9 mg/dL (1.8-2.4); POTASSIUM 4.26 mEq/L (3.5-5.1)
[2024-10-16 07:58] LABS: INR 1.19; PARTIAL THROMBOPLASTIN TIME 31.9 SECONDS (22.0-34.0); PROTHROMBIN TIME 12.8 SECONDS (9.0-11.5)
[2024-10-16 08:02] LABS: HEMATOCRIT 34.1 % (39.0-48.0); HEMOGLOBIN 11.8 g/dL (13-16.00); MEAN CELL VOLUME 86.7 fL (80.0-100.00); MEAN CORPUSCULAR HEMOGLOBIN 30.1 pg (27.00-32.0); MEAN CORPUSCULAR HGB CONC 34.7 g/dl (32.0-36.0); PLATELET COUNT 197 K/uL (150-450); RED BLOOD COUNT 3.94 M/uL (4.00-6.00); RED CELL DISTRIBUTION WIDTH 16.4 % (11.5-14.5)
[2024-10-16 08:09] LABS: PHOSPHOROUS 1.8 mg/dL (2.5-4.9)
[2024-10-16] MEDS ORDERED: CHLORHEXIDINE GLUCONATE 120 ML BOTTLE TOP ONE (08:53)
[2024-10-16 16:00] VITALS: BP 108/73
[2024-10-16 21:58] LABS: HEMOGLOBIN 12.5 g/dL (13-16.00); MEAN CELL VOLUME 87.8 fL (80.0-100.00); MEAN CORPUSCULAR HEMOGLOBIN 29.5 pg (27.00-32.0); MEAN CORPUSCULAR HGB CONC 33.6 g/dl (32.0-36.0); PLATELET COUNT 227 K/uL (150-450); RED BLOOD COUNT 4.22 M/uL (4.00-6.00); RED CELL DISTRIBUTION WIDTH 16.4 % (11.5-14.5)
[2024-10-17] VITALS: BP 102/63; O2SAT 96
[2024-10-17 07:33] LABS: HEMATOCRIT 36.1 % (39.0-48.0); HEMOGLOBIN 12.2 g/dL (13-16.00); MEAN CELL VOLUME 88.5 fL (80.0-100.00); MEAN CORPUSCULAR HEMOGLOBIN 29.9 pg (27.00-32.0); MEAN CORPUSCULAR HGB CONC 33.8 g/dl (32.0-36.0); PLATELET COUNT 229 K/uL (150-450); RED BLOOD COUNT 4.07 M/uL (4.00-6.00); RED CELL DISTRIBUTION WIDTH 16.5 % (11.5-14.5)
[2024-10-17 08:00] VITALS: BP 100/67; O2SAT 96
[2024-10-17 08:13] LABS: BILIRUBIN TOTAL 0.53 mg/dL (0.3-1.2); CALCIUM 8.1 mg/dL (8.5-10.1); CREATININE SERUM 1.09 mg/dL (0.70-1.30); GFR 68.77; GLOBULINA 2.9 G/DL (2.4-3.5); POTASSIUM 4.2 mEq/L (3.5-5.1); TOTAL PROTEIN 4.9 gm/dL (6.4-8.2)
[2024-10-17] MEDS ORDERED: ONDANSETRON HCL 2 MG/ML VIAL IV PRN (10:15)
[2024-10-17 16:00] VITALS: BP 104/68; O2SAT 100
[2024-10-18] VITALS: BP 116/75; O2SAT 96
[2024-10-18 05:00] VITALS: O2SAT 62
[2024-10-18 09:00] VITALS: BP 103/69; O2SAT 96
[2024-10-18 16:02] VITALS: BP 97/64; O2SAT 95
[2024-10-19] VITALS: BP 90/55; O2SAT 95
[2024-10-19 08:00] VITALS: BP 95/66; O2SAT 98
[2024-10-19 08:35] LABS: HEMATOCRIT 37.5 % (39.0-48.0); HEMOGLOBIN 12.6 g/dL (13-16.00); MEAN CELL VOLUME 88.3 fL (80.0-100.00); MEAN CORPUSCULAR HEMOGLOBIN 29.7 pg (27.00-32.0); MEAN CORPUSCULAR HGB CONC 33.6 g/dl (32.0-36.0); PLATELET COUNT 256 K/uL (150-450); RED BLOOD COUNT 4.24 M/uL (4.00-6.00); RED CELL DISTRIBUTION WIDTH 17.2 % (11.5-14.5)
[2024-10-19 08:55] LABS: BILIRUBIN TOTAL 0.47 mg/dL (0.3-1.2); C-REACTIVE PROTEIN 4.87 MG/DL (0.00-0.29); CALCIUM 8.3 mg/dL (8.5-10.1); CREATININE SERUM 1.09 mg/dL (0.70-1.30); GFR 68.77; GLOBULINA 3.2 G/DL (2.4-3.5); MAGNESIUM 1.9 mg/dL (1.8-2.4); PHOSPHOROUS 3.2 mg/dL (2.5-4.9); POTASSIUM 4.13 mEq/L (3.5-5.1); TOTAL PROTEIN 5.2 gm/dL (6.4-8.2)
[2024-10-19] MEDS ORDERED: PANTOPRAZOLE SODIUM 40 MG TABLET.DR PO SCH (09:00)
[2024-10-19 16:00] VITALS: BP 109/71; O2SAT 100
[2024-10-20 01:35] VITALS: BP 106/69; O2SAT 96
[2024-10-20 08:21] LABS: HEMATOCRIT 35.5 % (39.0-48.0); HEMOGLOBIN 12.6 g/dL (13-16.00); MEAN CELL VOLUME 87.1 fL (80.0-100.00); MEAN CORPUSCULAR HEMOGLOBIN 31.1 pg (27.00-32.0); MEAN CORPUSCULAR HGB CONC 35.7 g/dl (32.0-36.0); PLATELET COUNT 257 K/uL (150-450); RED BLOOD COUNT 4.07 M/uL (4.00-6.00); RED CELL DISTRIBUTION WIDTH 17.3 % (11.5-14.5)
[2024-10-20 08:42] VITALS: BP 112/76; O2SAT 98
== END 2024-10-20 14:25 | disposition home or self-care (01) | DRG 377 ==
LOC: ER 01:16 → O/R 12:07 → ICU 12:07 → SEC-K 12:07 → ICU-2 12:40 → ICU 15:46 → SURH 10-16 11:35 → SURG 10-18 21:09
PROVIDERS: General Practice; Internal Medicine; Internal Medicine Hematology & Oncology; Internal Medicine Infectious Disease; ADMIT Internal Medicine Geriatric Medicine; ATTEND Internal Medicine Geriatric Medicine
PROC: 30233K1 Transfusion of Nonautologous Frozen Plasma into Peripheral Vein, Percutaneous Approach (ICD-10-PCS; principal; 2024-10-11)
PROC: 30233N1 Transfusion of Nonautologous Red Blood Cells into Peripheral Vein, Percutaneous Approach (ICD-10-PCS; 2024-10-11)
PROC: 0BH17EZ Insertion of Endotracheal Airway into Trachea, Via Natural or Artificial Opening (ICD-10-PCS; 2024-10-11)
PROC: 5A1945Z Respiratory Ventilation, 24-96 Consecutive Hours (ICD-10-PCS; 2024-10-11)
PROC: 4A12X4Z Monitoring of Cardiac Electrical Activity, External Approach (ICD-10-PCS; 2024-10-11)
PROC: 0DJD8ZZ Inspection of Lower Intestinal Tract, Via Natural or Artificial Opening Endoscopic (ICD-10-PCS; 2024-10-12)
PROC: B246ZZZ Ultrasonography of Right and Left Heart (ICD-10-PCS; 2024-10-12)
DX: K62.5 Hemorrhage of anus and rectum (principal); J96.00 Acute respiratory failure, unspecified whether with hypoxia or hypercapnia; R57.1 Hypovolemic shock; R57.8 Other shock; C20 Malignant neoplasm of rectum; D62 Acute posthemorrhagic anemia; E87.4 Mixed disorder of acid-base balance; N17.9 Acute kidney failure, unspecified; D68.9 Coagulation defect, unspecified; D84.89 Other immunodeficiencies; D64.89 Other specified anemias; I12.9 Hypertensive chronic kidney disease with stage 1 through stage 4 chronic kidney disease, or unspecified chronic kidney disease; N18.9 Chronic kidney disease, unspecified; I48.0 Paroxysmal atrial fibrillation; Z92.21 Personal history of antineoplastic chemotherapy; Z92.3 Personal history of irradiation; Z79.01 Long term (current) use of anticoagulants; Z93.2 Ileostomy status

== ENCOUNTER 2024-11-05 14:34 | Inpatient (IN) | payer OTHER ==
[~2024-11-05] VITALS: Ht 210.8 cm; Wt 91.6 kg
[2024-11-05] MEDS ORDERED: 0.9 % SODIUM CHLORIDE 1,000 ML IV STA (14:43)
[2024-11-05] MEDS ORDERED: FAMOTIDINE/PF 20 MG/2 ML VIAL ONE (14:44)
[2024-11-05] MEDS ORDERED: FAMOTIDINE/PF 20 MG/2 ML VIAL IV PUSH ONE (14:45)
[2024-11-05] MEDS ORDERED: PANTOPRAZOLE SODIUM 80 MG in 0.9 % SODIUM CHLORIDE 100 ML IV SCH (14:45)
[2024-11-05] MEDS ORDERED: MORPHINE SULFATE 4 MG/ML VIAL IV ONE (14:45)
[2024-11-05] MEDS ORDERED: TAMS0.4C PO (14:51)
[2024-11-05 15:20] LABS: HEMATOCRIT 36.5 % (39.0-48.0); HEMOGLOBIN 12.1 g/dL (13-16.00); MEAN CELL VOLUME 87.5 fL (80.0-100.00); MEAN CORPUSCULAR HEMOGLOBIN 29.1 pg (27.00-32.0); MEAN CORPUSCULAR HGB CONC 33.2 g/dl (32.0-36.0); PLATELET COUNT 355 K/uL (150-450); RED BLOOD COUNT 4.17 M/uL (4.00-6.00); RED CELL DISTRIBUTION WIDTH 15.8 % (11.5-14.5)
[2024-11-05 15:54] LABS: ALBUMIN 2.2 gm/dL (3.4-5.0); BILIRUBIN TOTAL 0.5 mg/dL (0.3-1.2); CALCIUM 8.6 mg/dL (8.5-10.1); CREATININE SERUM 1.19 mg/dL (0.70-1.30); GFR 62.15; GLOBULINA 4.2 G/DL (2.4-3.5); POTASSIUM 4.06 mEq/L (3.5-5.1); TOTAL PROTEIN 6.4 gm/dL (6.4-8.2)
[2024-11-05] MEDS ORDERED: TAMSULOSIN HCL 0.4 MG CAP PO ONE ×2 (16:00→16:03)
[2024-11-05] MEDS ORDERED: DICYCLOMINE HCL 20 MG TABLET PO STA (16:38)
[2024-11-05] MEDS ORDERED: 0.9 % SODIUM CHLORIDE 1,000 ML IV SCH (16:45)
[2024-11-05] MEDS ORDERED: DICYCLOMINE HCL 10 MG CAPSULE PO ONE (16:54)
[2024-11-05] MEDS ORDERED: MORPHINE SULFATE 4 MG/ML CARTRIDGE IV ONE (18:00)
[2024-11-05 20:51] LABS: PH,URINE 5.5 (5.0-8.0); URINE APPEARANCE Clear; URINE BILIRRUBIN Negative (NEGATIVE); URINE BLOOD Negative; URINE COLOR Yellow; URINE GLUCOSE Negative (NEGATIVE); URINE KETONE Negative (NEGATIVE); URINE LEUKOCYTE Negative; URINE NITRATE Negative; URINE PROTEIN Trace (NEGATIVE); URINE UROBILINOGEN 0.2 E.U./dl
[2024-11-05 20:54] LABS: URINE BACTERIA 12.2 uL (0.0-1933); URINE EPITHELIAL CELLS 2.5 uL (0.0-38.8); URINE RBC 3.5 uL (0.0-20.8); URINE WBC 4.5 uL (0.0-23.2)
[2024-11-05 21:24] LABS: URINE CAST 0.88 uL (0.0-1.40)
[2024-11-05] MEDS ORDERED: PIPERACILLIN/TAZOBACTAM SODIUM 3.375 GM in DEXTROSE 5 % IN WATER 100 ML IV SCH (21:42)
[2024-11-05] MEDS ORDERED: ONDANSETRON HCL 4 MG in 0.9 % SODIUM CHLORIDE 50 ML IV PRN (21:45)
[2024-11-05] MEDS ORDERED: MORPHINE SULFATE 2 MG/ML CARTRIDGE IV PRN (21:45)
[2024-11-05] MEDS ORDERED: PIPERACILLIN/TAZOBACTAM SODIUM 3.375 GM VIAL IV ONE (22:09)
[2024-11-05 23:36] LABS: INR 1.21; PARTIAL THROMBOPLASTIN TIME 30.2 SECONDS (22.0-34.0)
[2024-11-05 23:39] VITALS: BP 112/67; O2SAT 100
[2024-11-06] VITALS: BP 116/67; O2SAT 100
[2024-11-06] MEDS ORDERED: PIPERACILLIN/TAZOBACTAM SODIUM 3.375 GM VIAL IV ONE (05:46)
[2024-11-06 06:00] VITALS: BP 112/67; O2SAT 100
[2024-11-06 07:25] VITALS: BP 112/70; O2SAT 100
[2024-11-06 07:51] LABS: CALCIUM 8.5 mg/dL (8.5-10.1); CREATININE SERUM 1.07 mg/dL (0.70-1.30); GFR 70.26; MAGNESIUM 1.9 mg/dL (1.8-2.4); PHOSPHOROUS 3.7 mg/dL (2.5-4.9); POTASSIUM 4.13 mEq/L (3.5-5.1)
[2024-11-06 07:56] LABS: HEMATOCRIT 35.9 % (39.0-48.0); HEMOGLOBIN 11.9 g/dL (13-16.00); MEAN CELL VOLUME 88.3 fL (80.0-100.00); MEAN CORPUSCULAR HEMOGLOBIN 29.3 pg (27.00-32.0); MEAN CORPUSCULAR HGB CONC 33.2 g/dl (32.0-36.0); PLATELET COUNT 354 K/uL (150-450); RED BLOOD COUNT 4.06 M/uL (4.00-6.00); RED CELL DISTRIBUTION WIDTH 15.9 % (11.5-14.5)
[2024-11-06] MEDS ORDERED: ENOXAPARIN SODIUM 40 MG/0.4 ML SYRINGE SUBCUTANEO SCH (09:00)
[2024-11-06] MEDS ORDERED: TAMSULOSIN HCL 0.4 MG CAP PO SCH ×2 (09:00→21:00)
[2024-11-06 11:00] VITALS: BP 100/68; O2SAT 99
[2024-11-06] MEDS ORDERED: MINERAL OIL 30 ML BLIST.PACK PO NR (15:30)
[2024-11-06 15:44] VITALS: BP 105/63; O2SAT 100
[2024-11-06] MEDS ORDERED: SIMETHICONE 125 MG CAPSULE PO SCH (17:00)
[2024-11-06] MEDS ORDERED: LACTOBACILLUS ACIDOPHILUS 1 CAP CAP PO SCH (17:00)
[2024-11-06 18:02] VITALS: O2SAT 97
[2024-11-06] MEDS ORDERED: MORPHINE SULFATE 4 MG/ML VIAL IV STA (21:50)
[2024-11-06] MEDS ORDERED: MORPHINE SULFATE 4 MG/ML VIAL IV PRN (22:00)
[2024-11-07 00:20] VITALS: BP 115/78; O2SAT 100
[2024-11-07 06:20] VITALS: O2SAT 97
[2024-11-07 09:25] VITALS: O2SAT 99
[2024-11-07] MEDS ORDERED: MEPERIDINE HCL/PF 25 MG/ML VIAL IV SCH (12:00)
[2024-11-07 12:38] VITALS: O2SAT 90
[2024-11-07 17:19] VITALS: BP 124/81; O2SAT 98
[2024-11-07 23:50] VITALS: BP 116/70; O2SAT 98
[2024-11-08 00:50] VITALS: O2SAT 95
[2024-11-08 06:47] LABS: HEMATOCRIT 33.7 % (39.0-48.0); HEMOGLOBIN 11.5 g/dL (13-16.00); MEAN CELL VOLUME 87.1 fL (80.0-100.00); MEAN CORPUSCULAR HEMOGLOBIN 29.7 pg (27.00-32.0); MEAN CORPUSCULAR HGB CONC 34.2 g/dl (32.0-36.0); PLATELET COUNT 290 K/uL (150-450); RED BLOOD COUNT 3.87 M/uL (4.00-6.00); RED CELL DISTRIBUTION WIDTH 15.6 % (11.5-14.5)
[2024-11-08 07:55] LABS: BILIRUBIN TOTAL 0.54 mg/dL (0.3-1.2); CREATININE SERUM 0.84 mg/dL (0.70-1.30); GFR 92.89; GLOBULINA 3.1 G/DL (2.4-3.5); POTASSIUM 3.81 mEq/L (3.5-5.1); TOTAL PROTEIN 5.1 gm/dL (6.4-8.2)
[2024-11-08 09:04] VITALS: O2SAT 96
[2024-11-08 10:29] VITALS: BP 115/73; O2SAT 98
[2024-11-08] MEDS ORDERED: ACETAMINOPHEN 500 MG GEL..CAP PO PRN (15:30)
[2024-11-08 15:54] VITALS: BP 109/72; O2SAT 98
[2024-11-08 20:41] VITALS: BP 101/68; O2SAT 97
[2024-11-08] MEDS ORDERED: LOPERAMIDE HCL 2 MG CAPSULE PO ONE (20:45)
[2024-11-09 00:35] VITALS: BP 106/65; O2SAT 95
[2024-11-09] MEDS ORDERED: PANTOPRAZOLE SODIUM 40 MG/VIAL VIAL IV SCH (06:00)
[2024-11-09 14:34] VITALS: BP 99/56; O2SAT 96
[2024-11-09 16:00] VITALS: BP 104/64; O2SAT 98
[2024-11-09 23:55] VITALS: BP 105/72; O2SAT 95
[2024-11-10] MEDS ORDERED: LOPERAMIDE HCL 2 MG CAPSULE PO SCH (12:48)
[2024-11-10 14:10] VITALS: BP 100/69; O2SAT 99
[2024-11-10 16:00] VITALS: BP 109/72; O2SAT 98
[2024-11-11 00:14] VITALS: BP 120/76; O2SAT 98
[2024-11-11 07:10] LABS: HEMATOCRIT 33.8 % (39.0-48.0); HEMOGLOBIN 11.3 g/dL (13-16.00); MEAN CELL VOLUME 87.7 fL (80.0-100.00); MEAN CORPUSCULAR HEMOGLOBIN 29.3 pg (27.00-32.0); MEAN CORPUSCULAR HGB CONC 33.4 g/dl (32.0-36.0); PLATELET COUNT 267 K/uL (150-450); RED BLOOD COUNT 3.85 M/uL (4.00-6.00)
[2024-11-11 07:36] LABS: CALCIUM 8.3 mg/dL (8.5-10.1); CREATININE SERUM 0.95 mg/dL (0.70-1.30); GFR 80.6; MAGNESIUM 2.1 mg/dL (1.8-2.4); POTASSIUM 3.95 mEq/L (3.5-5.1)
[2024-11-11 08:00] VITALS: BP 102/70; O2SAT 97
[2024-11-11 15:00] VITALS: BP 109/70; O2SAT 98
[2024-11-11] MEDS ORDERED: LOPERAMIDE HCL 2 MG CAPSULE PO SCH (17:00)
[2024-11-12 01:14] VITALS: BP 117/74; O2SAT 100
[2024-11-12 08:27] VITALS: BP 97/61; O2SAT 96
[2024-11-12] MEDS ORDERED: INTESTINEX680 M1 PO (13:39)
[2024-11-12] MEDS ORDERED: TAMS0.4C PO (13:39)
[2024-11-12] MEDS ORDERED: LOPERAMIDE2 MG PO (13:39)
[2024-11-12] MEDS ORDERED: PEPCID AC20 MG PO (13:39)
[2024-11-12] MEDS ORDERED: SIMETHICONE125 M1 PO (13:39)
[2024-11-13] MEDS ORDERED: PANTOPRAZOLE SODIUM 40 MG TABLET.DR PO SCH (06:00)
== END 2024-11-12 13:55 | disposition home or self-care (01) | DRG 641 ==
LOC: ER 14:34 → SURG 22:36 → ICU-2 22:36 → SURG 11-06 14:26
PROVIDERS: Emergency Medicine; General Practice; Internal Medicine; ADMIT Internal Medicine Geriatric Medicine; ATTEND Internal Medicine Geriatric Medicine
PROC: BW21YZZ Computerized Tomography (CT Scan) of Abdomen and Pelvis using Other Contrast (ICD-10-PCS; principal; 2024-11-05)
PROC: B020ZZZ Computerized Tomography (CT Scan) of Brain (ICD-10-PCS; 2024-11-05)
PROC: 4A12X4Z Monitoring of Cardiac Electrical Activity, External Approach (ICD-10-PCS; 2024-11-05)
PROC: 0T9B70Z Drainage of Bladder with Drainage Device, Via Natural or Artificial Opening (ICD-10-PCS; 2024-11-07)
DX: E86.0 Dehydration (principal); K56.609 Unspecified intestinal obstruction, unspecified as to partial versus complete obstruction; C20 Malignant neoplasm of rectum; K61.1 Rectal abscess; R63.0 Anorexia; R42 Dizziness and giddiness; R33.9 Retention of urine, unspecified; Z92.21 Personal history of antineoplastic chemotherapy; Z92.3 Personal history of irradiation; Z93.2 Ileostomy status

== ENCOUNTER 2024-11-18 15:18 | Inpatient (IN) | payer OTHER ==
[~2024-11-18] VITALS: Ht 210.8 cm; Wt 90.7 kg
[~2024-11-18 15:18] MED LIST changes: +INTESTINEX680 M1 PO; +LOPERAMIDE2 MG PO; +PEPCID AC20 MG PO; +SIMETHICONE125 M1 PO; +TAMS0.4C PO
[2024-11-18] MEDS ORDERED: 0.9 % SODIUM CHLORIDE 1,000 ML IV STA (15:30)
[2024-11-18] MEDS ORDERED: METRONIDAZOLE/SODIUM CHLORIDE 500 MG/100 ML PIGGYBACK IV ONE (15:30)
[2024-11-18] MEDS ORDERED: CIPROFLOXACIN IN 5 % DEXTROSE 400 MG/200 ML PIGGYBAG IV ONE (15:30)
--- NOTE | 2024-11-18 15:43 | NUR ---
PACIENTE ALERTA Y ORIENTADO X3 REFIERE ESTAR CON DOLOR ABDOMINAL DESDE HOY. SE MIDE S/V Y SE UBICA
[2024-11-18] MEDS ORDERED: MORPHINE SULFATE 4 MG/ML VIAL IV ONE (15:45)
--- NOTE | 2024-11-18 15:46 | NUR ---
SE ORIENTA A PACIENTE SOBRE TX MEDICO, REFIERE ENTENDER. SE REALIZAN MUESTRAS DE LABORATORIO BAJO MEDIDAS ASEPTICAS. SE ADMINISTRAN MEDICAMENTOS STEPHENIE ORDEN MEDICA. SE COORDINA CT. PACIENTE MANEJADO POR . PENDIENTE RE-EVALUACION MEDICA.
[2024-11-18] MEDS ORDERED: MEPERIDINE HCL/PF 50 MG/ML VIAL IM STA (15:49)
[2024-11-18 15:51] LABS: HEMATOCRIT 41.9 % (39.0-48.0); HEMOGLOBIN 13.8 g/dL (13-16.00); MEAN CELL VOLUME 88.1 fL (80.0-100.00); MEAN CORPUSCULAR HGB CONC 32.9 g/dl (32.0-36.0); PLATELET COUNT 337 K/uL (150-450); RED BLOOD COUNT 4.75 M/uL (4.00-6.00); RED CELL DISTRIBUTION WIDTH 16.5 % (11.5-14.5)
[2024-11-18] MEDS ORDERED: [UNRECOGNIZED DRUG - OTHER] (15:52)
[2024-11-18] MEDS ORDERED: TAMS0.4C PO (15:53)
[2024-11-18] MEDS ORDERED: VENTIL PO (15:53)
[2024-11-18] MEDS ORDERED: ONDANSETRON HCL 2 MG/ML VIAL IV STA (16:10)
[2024-11-18 16:38] LABS: CALCIUM 9.7 mg/dL (8.5-10.1); CREATININE SERUM 1.3 mg/dL (0.70-1.30); GFR 56.12; POTASSIUM 4.11 mEq/L (3.5-5.1)
[2024-11-18 18:41] LABS: URINE APPEARANCE Clear; URINE BILIRRUBIN Negative (NEGATIVE); URINE BLOOD Negative; URINE COLOR Yellow; URINE GLUCOSE Negative (NEGATIVE); URINE KETONE Negative (NEGATIVE); URINE LEUKOCYTE Negative; URINE NITRATE Negative; URINE PROTEIN Trace (NEGATIVE); URINE UROBILINOGEN 0.2 E.U./dl
[2024-11-18 18:42] LABS: URINE BACTERIA 2921.3 uL (0.0-1933); URINE RBC 2.2 uL (0.0-20.8); URINE WBC 14.4 uL (0.0-23.2)
[2024-11-18 18:58] LABS: URINE CAST 0.14 uL (0.0-1.40); URINE EPITHELIAL CELLS 1.2 uL (0.0-38.8)
[2024-11-18] MEDS ORDERED: PIPERACILLIN/TAZOBACTAM SODIUM 3.375 GM in DEXTROSE 5 % IN WATER 100 ML IV SCH (21:52)
[2024-11-18] MEDS ORDERED: FAMOTIDINE/PF 20 MG in 0.9 % SODIUM CHLORIDE 8 ML IV PUSH SCH (21:53)
[2024-11-18] MEDS ORDERED: 0.9 % SODIUM CHLORIDE 1,000 ML IV SCH (22:00)
[2024-11-18] MEDS ORDERED: MORPHINE SULFATE 2 MG/ML SYRINGE IV PRN (22:00)
[2024-11-18] MEDS ORDERED: ONDANSETRON HCL 4 MG in 0.9 % SODIUM CHLORIDE 50 ML IV PRN (22:00)
[2024-11-19 00:03] VITALS: BP 100/64; O2SAT 96
[2024-11-19 05:15] VITALS: BP 108/72; O2SAT 100
[2024-11-19 08:51] VITALS: BP 99/53; O2SAT 96
[2024-11-19 10:07] LABS: HEMATOCRIT 35.1 % (39.0-48.0); HEMOGLOBIN 11.9 g/dL (13-16.00); MEAN CELL VOLUME 86.7 fL (80.0-100.00); MEAN CORPUSCULAR HEMOGLOBIN 29.4 pg (27.00-32.0); MEAN CORPUSCULAR HGB CONC 33.9 g/dl (32.0-36.0); PLATELET COUNT 283 K/uL (150-450); RED BLOOD COUNT 4.04 M/uL (4.00-6.00); RED CELL DISTRIBUTION WIDTH 16.5 % (11.5-14.5)
[2024-11-19 14:50] LABS: ALBUMIN 2.6 gm/dL (3.4-5.0); BILIRUBIN TOTAL 0.55 mg/dL (0.3-1.2); CALCIUM 8.5 mg/dL (8.5-10.1); CREATININE SERUM 1.16 mg/dL (0.70-1.30); GFR 64.01; GLOBULINA 3.6 G/DL (2.4-3.5); POTASSIUM 4.13 mEq/L (3.5-5.1); TOTAL PROTEIN 6.2 gm/dL (6.4-8.2)
[2024-11-19 16:44] VITALS: BP 106/58; O2SAT 97
[2024-11-19] MEDS ORDERED: TAMSULOSIN HCL 0.4 MG CAP PO SCH (21:00)
[2024-11-20] VITALS: BP 92/59; O2SAT 98
[2024-11-20] MEDS ORDERED: HYOSCYAMINE SULFATE 0.125 MG TAB.SUBL SL SCH (08:00)
[2024-11-20 08:44] VITALS: BP 91/52; O2SAT 98
[2024-11-20 16:00] VITALS: BP 110/78; O2SAT 96
[2024-11-21 01:53] VITALS: BP 116/74; O2SAT 98
[2024-11-21 08:52] VITALS: BP 95/60; O2SAT 99
[2024-11-21] MEDS ORDERED: ACETAMINOPHEN 500 MG GEL..CAP PO PRN (14:00)
[2024-11-21] MEDS ORDERED: MEPERIDINE HCL/PF 50 MG/ML VIAL IV PRN (14:00)
[2024-11-21 16:00] VITALS: BP 104/74; O2SAT 98
[2024-11-22] VITALS: BP 99/64; O2SAT 98
[2024-11-22 06:45] LABS: HEMATOCRIT 31.7 % (39.0-48.0); HEMOGLOBIN 10.4 g/dL (13-16.00); MEAN CELL VOLUME 88.9 fL (80.0-100.00); MEAN CORPUSCULAR HEMOGLOBIN 29.3 pg (27.00-32.0); MEAN CORPUSCULAR HGB CONC 32.9 g/dl (32.0-36.0); RED BLOOD COUNT 3.56 M/uL (4.00-6.00); RED CELL DISTRIBUTION WIDTH 16.1 % (11.5-14.5)
[2024-11-22 07:03] LABS: CALCIUM 8.2 mg/dL (8.5-10.1); CREATININE SERUM 1.13 mg/dL (0.70-1.30); GFR 65.97; MAGNESIUM 1.9 mg/dL (1.8-2.4); PHOSPHOROUS 3.5 mg/dL (2.5-4.9); POTASSIUM 3.75 mEq/L (3.5-5.1)
[2024-11-22 08:00] VITALS: BP 110/68; O2SAT 97
[2024-11-22 08:19] LABS: PLATELET COUNT 223 K/uL (150-450)
[2024-11-22 16:25] VITALS: BP 110/75; O2SAT 96
[2024-11-23] VITALS: BP 90/61; O2SAT 95
[2024-11-23 14:12] VITALS: BP 121/72; O2SAT 98
[2024-11-23 16:00] VITALS: BP 104/72; O2SAT 98
[2024-11-24 00:45] VITALS: BP 90/61; O2SAT 100
[2024-11-24 07:44] LABS: INR 1.13; PARTIAL THROMBOPLASTIN TIME 28.2 SECONDS (22.0-34.0); PROTHROMBIN TIME 12.2 SECONDS (9.0-11.5)
[2024-11-24 08:55] VITALS: BP 100/64; O2SAT 98
[2024-11-24] MEDS ORDERED: PHYTONADIONE 10 MG/ML AMPUL IV STA (10:43)
[2024-11-24] MEDS ORDERED: LIDOCAINE HCL 1%/EPINEPHRINE 20ML VIAL IJ ONE ×2 (18:41→21:00)
[2024-11-24] MEDS ORDERED: BUPIVACAINE HCL 0.5% 50ML VIAL ONE (18:41)
[2024-11-24] MEDS ORDERED: CHLORHEXIDINE GLUCONATE 120 ML BOTTLE TOP ONE ×2 (18:41→21:00)
[2024-11-24] MEDS ORDERED: MORPHINE SULFATE 4 MG/ML CARTRIDGE IV PRN (20:30)
[2024-11-24] MEDS ORDERED: OxyCODONE HCL 5 MG TABLET (ROXICODONE) PO PRN (20:30)
[2024-11-24] MEDS ORDERED: FAMOTIDINE/PF 20 MG/2 ML VIAL IV PUSH SCH (21:00)
[2024-11-24] MEDS ORDERED: BUPIVACAINE HCL/PF 0.25% 30ML VIAL InF ONE (21:00)
[2024-11-24] MEDS ORDERED: FAMOTIDINE/PF 20 MG/2 ML VIAL ONE (21:48)
[2024-11-24 22:23] VITALS: BP 133/84; O2SAT 99
[2024-11-24 22:46] LABS: HEMATOCRIT 38.4 % (39.0-48.0); HEMOGLOBIN 12.5 g/dL (13-16.00); MEAN CELL VOLUME 88.4 fL (80.0-100.00); MEAN CORPUSCULAR HEMOGLOBIN 28.8 pg (27.00-32.0); MEAN CORPUSCULAR HGB CONC 32.6 g/dl (32.0-36.0); PLATELET COUNT 226 K/uL (150-450); RED BLOOD COUNT 4.34 M/uL (4.00-6.00); RED CELL DISTRIBUTION WIDTH 15.7 % (11.5-14.5)
[2024-11-25 00:49] VITALS: BP 102/63; O2SAT 100
[2024-11-25] MEDS ORDERED: ACETAMINOPHEN 500 MG GEL..CAP PO SCH (02:00)
[2024-11-25 06:18] LABS: HEMATOCRIT 36.4 % (39.0-48.0); HEMOGLOBIN 12.3 g/dL (13-16.00); MEAN CELL VOLUME 87.2 fL (80.0-100.00); MEAN CORPUSCULAR HEMOGLOBIN 29.5 pg (27.00-32.0); MEAN CORPUSCULAR HGB CONC 33.9 g/dl (32.0-36.0); PLATELET COUNT 221 K/uL (150-450); RED BLOOD COUNT 4.17 M/uL (4.00-6.00); RED CELL DISTRIBUTION WIDTH 16.1 % (11.5-14.5)
[2024-11-25 06:40] LABS: ALBUMIN 2.6 gm/dL (3.4-5.0); CALCIUM 8.4 mg/dL (8.5-10.1); CREATININE SERUM 1.33 mg/dL (0.70-1.30); GFR 54.66; MAGNESIUM 1.8 mg/dL (1.8-2.4); PHOSPHOROUS 3.7 mg/dL (2.5-4.9)
[2024-11-25 08:45] VITALS: BP 110/71; O2SAT 98
[2024-11-25] MEDS ORDERED: ONDANSETRON HCL 2 MG/ML VIAL IV PRN (09:45)
[2024-11-25 16:00] VITALS: BP 98/62; O2SAT 95
[2024-11-25] MEDS ORDERED: ENOXAPARIN SODIUM 40 MG/0.4 ML SYRINGE SUBCUTANEO SCH (17:00)
[2024-11-25] MEDS ORDERED: HYOSCYAMINE SULFATE 0.125 MG TAB.SUBL SL SCH (17:00)
[2024-11-26 07:04] LABS: HEMATOCRIT 36.8 % (39.0-48.0); HEMOGLOBIN 12.2 g/dL (13-16.00); MEAN CELL VOLUME 88.6 fL (80.0-100.00); MEAN CORPUSCULAR HEMOGLOBIN 29.4 pg (27.00-32.0); MEAN CORPUSCULAR HGB CONC 33.2 g/dl (32.0-36.0); PLATELET COUNT 205 K/uL (150-450); RED BLOOD COUNT 4.16 M/uL (4.00-6.00); RED CELL DISTRIBUTION WIDTH 15.8 % (11.5-14.5)
[2024-11-26 07:43] LABS: CALCIUM 8.3 mg/dL (8.5-10.1); CREATININE SERUM 1.14 mg/dL (0.70-1.30); GFR 65.3; MAGNESIUM 1.6 mg/dL (1.8-2.4); PHOSPHOROUS 3.3 mg/dL (2.5-4.9); POTASSIUM 3.91 mEq/L (3.5-5.1)
[2024-11-26 08:38] VITALS: BP 103/65; O2SAT 98
[2024-11-26] MEDS ORDERED: ENOXAPARIN SODIUM 40 MG/0.4 ML SYRINGE SUBCUTANEO SCH (09:00)
[2024-11-26] MEDS ORDERED: MAGNESIUM SULFATE IN WATER 50 ML IV NR (10:00)
== END 2024-11-26 16:55 | disposition home or self-care (01) | DRG 336 ==
LOC: ER 15:18 → SURH 23:09 → SEC-K 23:09 → SURH 11-19 03:57
PROVIDERS: Emergency Medicine; Internal Medicine; Internal Medicine Geriatric Medicine; ADMIT Colon & Rectal Surgery; ATTEND Colon & Rectal Surgery
PROC: BW21YZZ Computerized Tomography (CT Scan) of Abdomen and Pelvis using Other Contrast (ICD-10-PCS; 2024-11-18)
PROC: 0DH68UZ Insertion of Feeding Device into Stomach, Via Natural or Artificial Opening Endoscopic (ICD-10-PCS; 2024-11-18)
PROC: BW4GZZZ Ultrasonography of Pelvic Region (ICD-10-PCS; 2024-11-19)
PROC: 0DNW4ZZ Release Peritoneum, Percutaneous Endoscopic Approach (ICD-10-PCS; principal; 2024-11-24 21:00)
DX: K56.699 Other intestinal obstruction unspecified as to partial versus complete obstruction (principal); C20 Malignant neoplasm of rectum; K61.1 Rectal abscess; K56.51 Intestinal adhesions [bands], with partial obstruction; Z92.21 Personal history of antineoplastic chemotherapy; I11.9 Hypertensive heart disease without heart failure; B96.29 Other Escherichia coli [E. coli] as the cause of diseases classified elsewhere

== ENCOUNTER 2025-01-26 08:01 | Day surgery (SDC) | payer OTHER ==
[~2025-01-26 08:01] MED LIST changes: +VENTIL PO; +[UNRECOGNIZED DRUG - OTHER]
[2025-01-26] MEDS ORDERED: CEFAZOLIN SODIUM 1,000 MG VIAL ONE ×2 (12:17→12:55)
[2025-01-26] MEDS ORDERED: BUPIVACAINE HCL/Mpf 0.5% 10ML VIAL ONE (12:55)
[2025-01-26] MEDS ORDERED: LIDOCAINE HCL 1%/EPINEPHRINE 20ML VIAL IJ ONE (12:55)
[2025-01-26] MEDS ORDERED: HEPARIN SODIUM,PORCINE/PF 100 UNIT/ML SYRINGE IV ONE (12:55)
== END 2025-01-26 15:40 | disposition home or self-care (01) ==
LOC: CIR.AMB 08:01
PROVIDERS: ATTEND Colon & Rectal Surgery
DX: C20 Malignant neoplasm of rectum (principal); Z88.6 Allergy status to analgesic agent
CPT/HCPCS: 36561; C1751

== ENCOUNTER 2025-06-16 08:52 | Inpatient (IN) | payer OTHER ==
[~2025-06-16] VITALS: Ht 210.8 cm; Wt 104.3 kg
[2025-06-16] MEDS ORDERED: 0.9 % SODIUM CHLORIDE 1,000 ML IV ONE (09:30)
[2025-06-16] MEDS ORDERED: ONDANSETRON HCL 2 MG/ML VIAL IV ONE (09:30)
[2025-06-16] MEDS ORDERED: ONDANSETRON HCL 2 MG/ML VIAL ONE ×2 (09:30→16:39)
[2025-06-16] MEDS ORDERED: FAMOTIDINE/PF 20 MG/2 ML VIAL IV ONE (09:30)
[2025-06-16] MEDS ORDERED: FAMOTIDINE/PF 20 MG/2 ML VIAL ONE (09:31)
--- NOTE | 2025-06-16 09:38 | NUR ---
PTE ALERTA Y ORIENTADA X3 REFIERE QUE PRESENTA DOLOR ABDOMINAL. SE NABOR S/V Y SE UBICA EN CAMA EN POSICION SEMI SENTADA CON BARANDAS ELEVADAS POR WHYTE SEGURIDAD. SE REALIZA LAB Y SE ADMINISTRAN TX STEPHENIE ORDEN MEDICA BAJO MEDIDAS ASEPTICAS. SE ORIENTA PTE QUIEN REFIERE ENTENDER Y ACEPTAR.
[2025-06-16 09:40] LABS: BASO % 0.6 % (0.1-1.2); EOS # 0.15 (0.04-0.54); EOS % 2.1 % (0.7-7.0); LYMPH # 0.59 (1.18-3.74); LYMPH % 8.2 % (19.3-53.1); MEAN PLATELET VOLUME 11.10 fl (9.4-12.4); MONO # 0.53 (0.24-0.82); MONO % 7.4 % (4.7-12.5); NEUT # 5.86 (1.56-6.13); NEUT % 81.1 % (34.0-71.1); RED CELL DISTRIBUTION WIDTH 15.9 % (11.6-14.4)
[2025-06-16 09:58] LABS: INR 1.08
[2025-06-16 10:58] LABS: ALT/SGPT 24.0 U/L (12-78); AST/SGOT 21.0 U/L (15-37); BILIRUBIN TOTAL 0.75 mg/dL (0.3-1.2); BILIRUBIN,CONJUGATED 0.17 mg/dL (0.0-0.2); BUN CREA RATIO 11.0 (7.0-25.0); CREATININE SERUM 1.57 mg/dL (0.70-1.30); GFR 45.14; GLUCOSE FASTING 103.0 mg/dL (65-100); OSMOLALITY SERUM 279.0 MOSM/KG (275-295)
[2025-06-16] MEDS ORDERED: DIPHENHYDRAMINE HCL 50 MG/ML VIAL 1ML ONE (13:59)
[2025-06-16] MEDS ORDERED: MORPHINE SULFATE 4 MG/ML CARTRIDGE IV ONE (14:00)
[2025-06-16] MEDS ORDERED: DIPHENHYDRAMINE HCL 50 MG/ML VIAL 1ML IV ONE (14:00)
[2025-06-16] MEDS ORDERED: PIPERACILLIN/TAZOBACTAM SODIUM 3.375 GM VIAL IV ONE ×2 (15:15→17:46)
[2025-06-16] MEDS ORDERED: PANTOPRAZOLE SODIUM 40 MG in 0.9 % SODIUM CHLORIDE 8 ML IV PUSH SCH (17:00)
[2025-06-16] MEDS ORDERED: ENOXAPARIN SODIUM 40 MG/0.4 ML SYRINGE SUBCUTANEO SCH (17:21)
[2025-06-16] MEDS ORDERED: 0.9 % SODIUM CHLORIDE 1,000 ML IV SCH (17:30)
[2025-06-16] MEDS ORDERED: ONDANSETRON HCL 4 MG in 0.9 % SODIUM CHLORIDE 50 ML IV PRN (17:30)
[2025-06-16] MEDS ORDERED: MORPHINE SULFATE 4 MG/ML CARTRIDGE IV PRN ×2 (17:30→17:39)
[2025-06-16] MEDS ORDERED: LABETALOL HCL 100 MG/20 ML ML IV PUSH PRN (17:45)
[2025-06-16] MEDS ORDERED: DEXTROSE 5 % AND 0.9 % NACL 1,000 ML IV SCH (17:45)
[2025-06-16] MEDS ORDERED: ENOXAPARIN SODIUM 40 MG/0.4 ML SYRINGE SUBCUTANEO ONE (17:46)
[2025-06-16] MEDS ORDERED: PIPERACILLIN/TAZOBACTAM SODIUM 3.375 GM in 0.9 % SODIUM CHLORIDE 100 ML IV SCH (18:00)
[2025-06-16 18:47] VITALS: O2SAT 98
[2025-06-16 18:50] VITALS: BP 104/69; O2SAT 98
[2025-06-16] MEDS ORDERED: MORPHINE SULFATE 2 MG/ML CARTRIDGE IV PRN (19:45)
[2025-06-16 20:41] VITALS: O2SAT 96
[2025-06-17] VITALS (9 sets, daily range): BP systolic 115–130; BP diastolic 67–84; O2SAT 92–100
[2025-06-17 06:10] LABS: URINE APPEARANCE Clear; URINE BILIRRUBIN Negative (NEGATIVE); URINE BLOOD Negative; URINE COLOR Dark Yellow; URINE GLUCOSE Negative (NEGATIVE); URINE KETONE Trace (NEGATIVE); URINE LEUKOCYTE Trace; URINE NITRATE Negative; URINE PROTEIN Trace (NEGATIVE); URINE UROBILINOGEN 0.2 E.U./dl
[2025-06-17 06:11] LABS: URINE BACTERIA 16.7 uL (0.0-1933); URINE EPITHELIAL CELLS 1.8 uL (0.0-38.8); URINE WBC 4.6 uL (0.0-23.2)
[2025-06-17 06:13] LABS: BASO % 0.4 % (0.1-1.2); EOS # 0.05 (0.04-0.54); EOS % 1.1 % (0.7-7.0); LYMPH # 0.63 (1.18-3.74); LYMPH % 13.6 % (19.3-53.1); MEAN PLATELET VOLUME 11.70 fl (9.4-12.4); MONO # 0.44 (0.24-0.82); MONO % 9.5 % (4.7-12.5); NEUT # 3.48 (1.56-6.13); NEUT % 75.2 % (34.0-71.1); RED CELL DISTRIBUTION WIDTH 16.1 % (11.6-14.4)
[2025-06-17 06:15] LABS: URINE CAST 0.14 uL (0.0-1.40); URINE RBC 1.7 uL (0.0-20.8)
[2025-06-17 07:01] LABS: ALT/SGPT 22.0 U/L (12-78); AST/SGOT 15.0 U/L (15-37); BILIRUBIN TOTAL 0.93 mg/dL (0.3-1.2); BUN CREA RATIO 13.0 (7.0-25.0); CREATININE SERUM 1.44 mg/dL (0.70-1.30); GFR 49.87; GLOBULINA 3.0 G/DL (2.4-3.5); GLUCOSE FASTING 126.0 mg/dL (65-100); OSMOLALITY SERUM 285.0 MOSM/KG (275-295)
[2025-06-17] MEDS ORDERED: METHYLPREDNISOLONE SOD SUCC 40 MG VIAL IV SCH (09:00)
[2025-06-17] MEDS ORDERED: PANTOPRAZOLE SODIUM 40 MG in 0.9 % SODIUM CHLORIDE 8 ML IV PUSH SCH (09:00)
[2025-06-18] VITALS (8 sets, daily range): BP systolic 132–138; BP diastolic 81–83; O2SAT 96–100
[2025-06-18 08:12] LABS: BASO % 0.2 % (0.1-1.2); EOS # 0.01 (0.04-0.54); EOS % 0.2 % (0.7-7.0); LYMPH # 0.50 (1.18-3.74); LYMPH % 9.6 % (19.3-53.1); MEAN PLATELET VOLUME 11.90 fl (9.4-12.4); MONO # 0.48 (0.24-0.82); MONO % 9.2 % (4.7-12.5); NEUT # 4.17 (1.56-6.13); NEUT % 80.4 % (34.0-71.1); RED CELL DISTRIBUTION WIDTH 16.0 % (11.6-14.4)
[2025-06-18 08:42] LABS: ALT/SGPT 18.0 U/L (12-78); AST/SGOT 13.0 U/L (15-37); BILIRUBIN TOTAL 0.54 mg/dL (0.3-1.2); BUN CREA RATIO 15.0 (7.0-25.0); CREATININE SERUM 1.23 mg/dL (0.70-1.30); GFR 59.82; GLOBULINA 3.1 G/DL (2.4-3.5); GLUCOSE FASTING 105.0 mg/dL (65-100); OSMOLALITY SERUM 288.0 MOSM/KG (275-295)
[2025-06-18] MEDS ORDERED: POLYETHYLENE GLYCOL 3350 17 GM BLIST.PACK PO SCH (09:00)
[2025-06-18] MEDS ORDERED: DIATRIZOATE MEGLUMINE, SODIUM 30 ML BOTTLE PO NR (10:15)
[2025-06-18] MEDS ORDERED: LORazepam 2 MG/ML VIAL IV PRN (19:00)
[2025-06-19 00:32] VITALS: BP 126/72; O2SAT 100
[2025-06-19] MEDS ORDERED: MORPHINE SULFATE 4 MG/ML CARTRIDGE IV PRN (06:15)
[2025-06-19 08:40] VITALS: BP 125/75; O2SAT 97
[2025-06-19 14:15] VITALS: O2SAT 100
[2025-06-19 16:30] VITALS: O2SAT 97
[2025-06-19 16:52] VITALS: BP 142/94; O2SAT 99
[2025-06-19 19:19] VITALS: O2SAT 90
[2025-06-19] MEDS ORDERED: PANTOPRAZOLE SODIUM 40 MG in 0.9 % SODIUM CHLORIDE 8 ML IV PUSH SCH (22:00)
[2025-06-20 01:18] VITALS: BP 135/82; O2SAT 100
[2025-06-20 06:45] LABS: BASO % 0.2 % (0.1-1.2); EOS # 0.03 (0.04-0.54); EOS % 0.7 % (0.7-7.0); LYMPH # 0.59 (1.18-3.74); LYMPH % 14.3 % (19.3-53.1); MEAN PLATELET VOLUME 11.60 fl (9.4-12.4); MONO # 0.57 (0.24-0.82); NEUT # 2.91 (1.56-6.13); NEUT % 70.8 % (34.0-71.1); RED CELL DISTRIBUTION WIDTH 15.9 % (11.6-14.4)
[2025-06-20 06:55] LABS: MONO % 13.8 % (4.7-12.5)
[2025-06-20 07:34] LABS: BUN CREA RATIO 14.0 (7.0-25.0); CREATININE SERUM 1.25 mg/dL (0.70-1.30); GFR 58.72; GLUCOSE FASTING 94.0 mg/dL (65-100); OSMOLALITY SERUM 285.0 MOSM/KG (275-295)
[2025-06-20 08:00] VITALS: BP 115/76; O2SAT 99
[2025-06-20 16:48] VITALS: BP 132/87; O2SAT 100
[2025-06-20 20:23] VITALS: O2SAT 99
[2025-06-21 00:32] VITALS: BP 112/75; O2SAT 100
[2025-06-21 05:59] LABS: URINE APPEARANCE Clear; URINE BILIRRUBIN Negative (NEGATIVE); URINE BLOOD Negative; URINE COLOR Yellow; URINE GLUCOSE Negative (NEGATIVE); URINE KETONE Negative (NEGATIVE); URINE LEUKOCYTE Negative; URINE NITRATE Negative; URINE PROTEIN Negative (NEGATIVE); URINE UROBILINOGEN 0.2 E.U./dl
[2025-06-21 06:03] LABS: URINE EPITHELIAL CELLS 1.6 uL (0.0-38.8)
[2025-06-21 06:23] LABS: URINE BACTERIA 1.2 uL (0.0-1933); URINE CAST 0.00 uL (0.0-1.40); URINE RBC 0.2 uL (0.0-20.8); URINE WBC 0.9 uL (0.0-23.2)
[2025-06-21 07:29] LABS: BASO % 0.3 % (0.1-1.2); EOS # 0.06 (0.04-0.54); EOS % 1.8 % (0.7-7.0); LYMPH # 0.69 (1.18-3.74); LYMPH % 20.2 % (19.3-53.1); MEAN PLATELET VOLUME 12.10 fl (9.4-12.4); MONO # 0.59 (0.24-0.82); NEUT # 2.05 (1.56-6.13); NEUT % 60.1 % (34.0-71.1); RED CELL DISTRIBUTION WIDTH 15.9 % (11.6-14.4)
[2025-06-21 07:38] LABS: MONO % 17.3 % (4.7-12.5)
[2025-06-21 07:54] LABS: ALT/SGPT 17.0 U/L (12-78); AST/SGOT 10.0 U/L (15-37); BILIRUBIN TOTAL 0.3 mg/dL (0.3-1.2); BUN CREA RATIO 12.0 (7.0-25.0); CREATININE SERUM 1.23 mg/dL (0.70-1.30); GFR 59.82; GLOBULINA 3.0 G/DL (2.4-3.5); GLUCOSE FASTING 89.0 mg/dL (65-100); OSMOLALITY SERUM 285.0 MOSM/KG (275-295)
[2025-06-21 08:00] VITALS: BP 115/73; O2SAT 99
[2025-06-21 16:15] VITALS: BP 110/72; O2SAT 100
[2025-06-21 17:31] VITALS: O2SAT 97
[2025-06-21 20:01] VITALS: O2SAT 90
[2025-06-22 00:39] VITALS: BP 114/72; O2SAT 100
[2025-06-22 06:19] LABS: BASO % 0.9 % (0.1-1.2); EOS # 0.11 (0.04-0.54); EOS % 3.2 % (0.7-7.0); LYMPH # 0.67 (1.18-3.74); LYMPH % 19.3 % (19.3-53.1); MEAN PLATELET VOLUME 11.80 fl (9.4-12.4); MONO # 0.48 (0.24-0.82); NEUT # 2.18 (1.56-6.13); NEUT % 62.5 % (34.0-71.1); RED CELL DISTRIBUTION WIDTH 15.7 % (11.6-14.4)
[2025-06-22 06:26] LABS: MONO % 13.8 % (4.7-12.5)
[2025-06-22 06:44] LABS: BUN CREA RATIO 11.0 (7.0-25.0); CREATININE SERUM 1.37 mg/dL (0.70-1.30); GFR 52.82; GLUCOSE FASTING 112.0 mg/dL (65-100); OSMOLALITY SERUM 287.0 MOSM/KG (275-295)
[2025-06-22] MEDS ORDERED: PREDNISONE 5 MG TABLET PO SCH ×2 (09:00)
[2025-06-22] MEDS ORDERED: PIPERACILLIN/TAZOBACTAM SODIUM 3.375 GM VIAL IV ONE (10:11)
[2025-06-22] MEDS ORDERED: PREDNISONE 5MG PO (10:26)
[2025-06-22] MEDS ORDERED: PEPCID AC20 MG PO (10:27)
== END 2025-06-22 12:36 | disposition home or self-care (01) | DRG 389 ==
LOC: ER 08:53 → SEC-K 17:13 → SURG 17:13 → SURH 06-17 19:06
PROVIDERS: Colon & Rectal Surgery; Emergency Medicine; Internal Medicine Infectious Disease; Surgery; ADMIT Internal Medicine Geriatric Medicine; ATTEND Internal Medicine Geriatric Medicine
PROC: BW21ZZZ Computerized Tomography (CT Scan) of Abdomen and Pelvis (ICD-10-PCS; principal; 2025-06-16)
PROC: 4A12X4Z Monitoring of Cardiac Electrical Activity, External Approach (ICD-10-PCS; 2025-06-16)
PROC: 8E0ZXY6 Isolation (ICD-10-PCS; 2025-06-16)
PROC: 0DH68UZ Insertion of Feeding Device into Stomach, Via Natural or Artificial Opening Endoscopic (ICD-10-PCS; 2025-06-16)
PROC: BW21ZZZ Computerized Tomography (CT Scan) of Abdomen and Pelvis (ICD-10-PCS; 2025-06-18)
DX: K56.699 Other intestinal obstruction unspecified as to partial versus complete obstruction (principal); C20 Malignant neoplasm of rectum; J90 Pleural effusion, not elsewhere classified; N17.8 Other acute kidney failure; N39.0 Urinary tract infection, site not specified; K43.9 Ventral hernia without obstruction or gangrene; I48.0 Paroxysmal atrial fibrillation; B96.29 Other Escherichia coli [E. coli] as the cause of diseases classified elsewhere

== ENCOUNTER 2025-08-01 19:06 | Inpatient (IN) | payer OTHER ==
[~2025-08-01] VITALS: Ht 210.8 cm; Wt 50.8 kg
[~2025-08-01 19:06] MED LIST changes: +PREDNISONE 5MG PO
[2025-08-01] MEDS ORDERED: 0.9 % SODIUM CHLORIDE 1,000 ML IV ONE (20:45)
[2025-08-01] MEDS ORDERED: MORPHINE SULFATE 4 MG/ML CARTRIDGE IV ONE (20:45)
[2025-08-01 21:22] LABS: BASO % 0.3 % (0.1-1.2); EOS # 0.05 (0.04-0.54); EOS % 0.6 % (0.7-7.0); LYMPH # 0.41 (1.18-3.74); LYMPH % 4.5 % (19.3-53.1); MONO # 0.95 (0.24-0.82); MONO % 10.5 % (4.7-12.5); NEUT # 7.61 (1.56-6.13); NEUT % 83.9 % (34.0-71.1); RED CELL DISTRIBUTION WIDTH 18.2 % (11.6-14.4)
[2025-08-01 21:50] LABS: INR 1.09
[2025-08-01 21:55] LABS: ALT/SGPT 18.0 U/L (12-78); AST/SGOT 17.0 U/L (15-37); BILIRUBIN TOTAL 1.0 mg/dL (0.3-1.2); BUN CREA RATIO 9.0 (7.0-25.0); CREATININE SERUM 1.81 mg/dL (0.70-1.30); GFR 38.18; GLOBULINA 3.8 G/DL (2.4-3.5); GLUCOSE FASTING 122.0 mg/dL (65-100); OSMOLALITY SERUM 280.0 MOSM/KG (275-295); PHOSPHOKINASE CREATININE 101.0 U/L (39-308)
[2025-08-01] MEDS ORDERED: 0.9 % SODIUM CHLORIDE 1,000 ML IV SCH (22:30)
[2025-08-01] MEDS ORDERED: ONDANSETRON HCL 2 MG/ML VIAL IV PRN (22:30)
[2025-08-02] MEDS ORDERED: TRAMADOL HCL 50 MG TABLET PO ONE (00:30)
[2025-08-02] MEDS ORDERED: MORPHINE SULFATE 4 MG/ML CARTRIDGE IV PRN (00:45)
[2025-08-02 01:11] VITALS: BP 127/79; O2SAT 98
[2025-08-02 07:04] LABS: BASO % 0.1 % (0.1-1.2); EOS # 0.02 (0.04-0.54); EOS % 0.2 % (0.7-7.0); LYMPH # 0.72 (1.18-3.74); LYMPH % 8.1 % (19.3-53.1); MEAN PLATELET VOLUME 11.80 fl (9.4-12.4); MONO # 1.06 (0.24-0.82); MONO % 12.0 % (4.7-12.5); NEUT # 7.02 (1.56-6.13); NEUT % 79.3 % (34.0-71.1); RED CELL DISTRIBUTION WIDTH 18.6 % (11.6-14.4)
[2025-08-02 07:55] LABS: ALT/SGPT 22.0 U/L (12-78); AST/SGOT 16.0 U/L (15-37); BILIRUBIN TOTAL 1.09 mg/dL (0.3-1.2); BUN CREA RATIO 12.0 (7.0-25.0); CREATININE SERUM 1.81 mg/dL (0.70-1.30); GFR 38.18; GLOBULINA 3.3 G/DL (2.4-3.5); GLUCOSE FASTING 107.0 mg/dL (65-100); OSMOLALITY SERUM 279.0 MOSM/KG (275-295)
[2025-08-02 08:00] VITALS: BP 114/67; O2SAT 97
[2025-08-02] MEDS ORDERED: LOPERAMIDE HCL 2 MG CAPSULE PO SCH (09:00)
[2025-08-02] MEDS ORDERED: ENOXAPARIN SODIUM 40 MG/0.4 ML SYRINGE SUBCUTANEO SCH (09:00)
[2025-08-02] MEDS ORDERED: FAMOTIDINE/PF 20 MG/2 ML VIAL IV SCH (09:00)
[2025-08-02 15:15] LABS: URINE APPEARANCE Clear; URINE BILIRRUBIN Small (NEGATIVE); URINE BLOOD Negative; URINE COLOR Dark Yellow; URINE GLUCOSE Negative (NEGATIVE); URINE KETONE Trace (NEGATIVE); URINE LEUKOCYTE Trace; URINE NITRATE Negative; URINE PROTEIN 30 (NEGATIVE); URINE UROBILINOGEN 1.0 E.U./dl
[2025-08-02] MEDS ORDERED: 0.9 % SODIUM CHLORIDE 1,000 ML IV SCH (15:15)
[2025-08-02 15:18] LABS: URINE BACTERIA 10.7 uL (0.0-1933); URINE EPITHELIAL CELLS 5.8 uL (0.0-38.8); URINE RBC 9.5 uL (0.0-20.8)
[2025-08-02 15:54] LABS: URINE CAST 0.73 uL (0.0-1.40); URINE WBC 0.4 uL (0.0-23.2)
[2025-08-02 16:13] VITALS: BP 130/82; O2SAT 98
[2025-08-03 00:30] VITALS: BP 114/77; O2SAT 100
[2025-08-03 06:19] LABS: BASO % 1.3 % (0.1-1.2); EOS # 0.15 (0.04-0.54); EOS % 3.8 % (0.7-7.0); LYMPH # 0.75 (1.18-3.74); LYMPH % 19.2 % (19.3-53.1); MEAN PLATELET VOLUME 11.90 fl (9.4-12.4); MONO # 0.75 (0.24-0.82); NEUT # 2.21 (1.56-6.13); NEUT % 56.5 % (34.0-71.1); RED CELL DISTRIBUTION WIDTH 18.2 % (11.6-14.4)
[2025-08-03 06:43] LABS: BUN CREA RATIO 13.0 (7.0-25.0); CREATININE SERUM 1.83 mg/dL (0.70-1.30); GFR 37.7; GLUCOSE FASTING 79.0 mg/dL (65-100); OSMOLALITY SERUM 282.0 MOSM/KG (275-295)
[2025-08-03 06:55] LABS: MONO % 19.2 % (4.7-12.5)
[2025-08-03] MEDS ORDERED: MEGESTROL ACETATE 400 MG/10 ML BLIST PACK PO SCH (09:00)
[2025-08-03 09:39] VITALS: BP 117/74; O2SAT 99
[2025-08-03 16:12] VITALS: BP 115/72; O2SAT 98
[2025-08-04 01:24] VITALS: BP 113/71; O2SAT 100
[2025-08-04 08:00] VITALS: BP 110/73; O2SAT 99
[2025-08-04 08:55] LABS: ALT/SGPT 16.0 U/L (12-78); AST/SGOT 9.0 U/L (15-37); BILIRUBIN TOTAL 0.39 mg/dL (0.3-1.2); BUN CREA RATIO 13.0 (7.0-25.0); CREATININE SERUM 1.43 mg/dL (0.70-1.30); GFR 50.11; GLOBULINA 2.7 G/DL (2.4-3.5); GLUCOSE FASTING 78.0 mg/dL (65-100); OSMOLALITY SERUM 286.0 MOSM/KG (275-295)
== END 2025-08-04 13:21 | disposition home or self-care (01) | DRG 683 ==
LOC: ER 19:06 → SURH 22:30
PROVIDERS: General Practice; Internal Medicine; ADMIT Internal Medicine Geriatric Medicine; ATTEND Internal Medicine Geriatric Medicine
DX: N17.8 Other acute kidney failure (principal); C20 Malignant neoplasm of rectum; N18.9 Chronic kidney disease, unspecified; Z93.2 Ileostomy status

== ENCOUNTER 2025-09-04 13:06 | Inpatient (IN) | payer OTHER ==
[~2025-09-04] VITALS: Ht 210.8 cm; Wt 97.1 kg
--- NOTE | 2025-09-04 13:11 | NUR ---
SE RECIBE PACIENTE ALERTA Y CONCIENTE X3. EL MISMO REFIERE TENER DOLOR ABDOMINAL HACE VARIOS SENA. SE PROCEDE A LILA S/V AL PACIENTE Y SE UBICA EN CAMA CON BARANDAS ELEVADAS Y NIVEL MAS BAJO DE LA MSIMA.
[2025-09-04] MEDS ORDERED: FAMOTIDINE/PF 20 MG/2 ML VIAL IV ONE (17:30)
[2025-09-04] MEDS ORDERED: 0.9 % SODIUM CHLORIDE 1,000 ML IV ONE (17:30)
[2025-09-04] MEDS ORDERED: MORPHINE SULFATE 2 MG/ML SYRINGE IV ONE (17:30)
[2025-09-04] MEDS ORDERED: MORPHINE SULFATE 4 MG/ML VIAL IV ONE ×2 (17:45→22:45)
[2025-09-04 18:02] LABS: BASO % 1.0 % (0.1-1.2); EOS # 0.23 (0.04-0.54); EOS % 4.7 % (0.7-7.0); LYMPH # 0.61 (1.18-3.74); LYMPH % 12.6 % (19.3-53.1); MEAN PLATELET VOLUME 12.90 fl (9.4-12.4); MONO # 0.85 (0.24-0.82); NEUT # 3.10 (1.56-6.13); NEUT % 64.0 % (34.0-71.1); RED CELL DISTRIBUTION WIDTH 18.6 % (11.6-14.4)
[2025-09-04 18:26] LABS: MONO % 17.5 % (4.7-12.5)
--- NOTE | 2025-09-04 18:33 | NUR ---
PACIENTE SE ORIENTA Y SE EDUCA SOBRE TX MEDICO EL CUAL INDICA ENTENDER Y ACETPAR. SE COLECTAN MUESTRAS DE LABORATORIO Y SE REALIZA CANALIZACION BAJO MEDIDAS ASEPTICAS. SE ENTREGA U/A. SE ADMINISTRA MEDICAMENTO STEPHENIE ORDEN MEDICA. PENDIENTE A REALIZAR CT IWTH CONTRAST.
[2025-09-04 18:47] LABS: URINE APPEARANCE Clear; URINE BILIRRUBIN Negative (NEGATIVE); URINE BLOOD Negative; URINE COLOR Dark Yellow; URINE GLUCOSE Negative (NEGATIVE); URINE LEUKOCYTE Trace; URINE NITRATE Negative; URINE PROTEIN Trace (NEGATIVE); URINE UROBILINOGEN 1.0 E.U./dl
[2025-09-04 18:53] LABS: URINE EPITHELIAL CELLS 1.8 uL (0.0-38.8); URINE RBC 4.9 uL (0.0-20.8); URINE WBC 3.5 uL (0.0-23.2)
[2025-09-04 19:06] LABS: URINE BACTERIA 3.4 uL (0.0-1933); URINE CAST 0.28 uL (0.0-1.40); URINE KETONE 40 (NEGATIVE)
[2025-09-04 20:19] LABS: ALT/SGPT 23.0 U/L (12-78); AST/SGOT 22.0 U/L (15-37); BILIRUBIN TOTAL 0.98 mg/dL (0.3-1.2); BUN CREA RATIO 15.0 (7.0-25.0); CREATININE SERUM 1.26 mg/dL (0.70-1.30); GFR 57.99; GLOBULINA 4.0 G/DL (2.4-3.5); GLUCOSE FASTING 80.0 mg/dL (65-100); OSMOLALITY SERUM 279.0 MOSM/KG (275-295)
[2025-09-04] MEDS ORDERED: CIPROFLOXACIN IN 5 % DEXTROSE 400 MG/200 ML PIGGYBAG IV ONE (22:15)
[2025-09-04] MEDS ORDERED: METRONIDAZOLE/SODIUM CHLORIDE 500 MG/100 ML PIGGYBACK IV ONE (22:15)
[2025-09-04] MEDS ORDERED: 0.9 % SODIUM CHLORIDE 1,000 ML IV SCH (22:45)
[2025-09-04] MEDS ORDERED: FAMOTIDINE/PF 20 MG in 0.9 % SODIUM CHLORIDE 8 ML IV PUSH SCH (22:48)
[2025-09-04] MEDS ORDERED: MORPHINE SULFATE 4 MG/ML CARTRIDGE IV PRN (23:00)
[2025-09-04] MEDS ORDERED: ONDANSETRON HCL 4 MG in 0.9 % SODIUM CHLORIDE 50 ML IV PRN (23:00)
[2025-09-05] MEDS ORDERED: PIPERACILLIN/TAZOBACTAM SODIUM 3.375 GM in DEXTROSE 5 % IN WATER 100 ML IV SCH
[2025-09-05 06:37] LABS: INR 1.16
[2025-09-05] MEDS ORDERED: MORPHINE SULFATE 4 MG/ML VIAL IV PRN (07:00)
[2025-09-05 08:23] VITALS: BP 111/76; O2SAT 97
[2025-09-05] MEDS ORDERED: ENOXAPARIN SODIUM 40 MG/0.4 ML SYRINGE SUBCUTANEO SCH (10:00)
[2025-09-05] MEDS ORDERED: DEXTROSE 5 % AND 0.9 % NACL 1,000 ML IV SCH (10:00)
[2025-09-05] MEDS ORDERED: ENOXAPARIN SODIUM 40 MG/0.4 ML SYRINGE SUBCUTANEO NR (12:45)
[2025-09-05] MEDS ORDERED: PREDNISONE 5 MG TABLET PO SCH (13:00)
[2025-09-06 00:30] VITALS: BP 132/83; O2SAT 98
[2025-09-06] MEDS ORDERED: PANTOPRAZOLE SODIUM 40 MG/VIAL VIAL IV SCH (06:00)
[2025-09-06] MEDS ORDERED: ACETAMINOPHEN 500 MG GEL..CAP PO PRN (06:45)
[2025-09-06 08:39] VITALS: BP 120/75; O2SAT 98
[2025-09-06] MEDS ORDERED: ENOXAPARIN SODIUM 40 MG/0.4 ML SYRINGE SUBCUTANEO SCH (09:00)
[2025-09-06 16:30] VITALS: BP 101/71; O2SAT 99
[2025-09-07 00:05] VITALS: BP 122/85; O2SAT 100
[2025-09-07 08:00] VITALS: BP 115/77; O2SAT 95
== END 2025-09-07 14:26 | disposition home or self-care (01) | DRG 389 ==
LOC: ER 13:06 → SURG 23:54 → SURH 23:54 → SURG 09-05 10:20
PROVIDERS: General Practice; ADMIT Internal Medicine Geriatric Medicine; ATTEND Internal Medicine Geriatric Medicine
PROC: BW21YZZ Computerized Tomography (CT Scan) of Abdomen and Pelvis using Other Contrast (ICD-10-PCS; principal; 2025-09-04)
PROC: 0DH68UZ Insertion of Feeding Device into Stomach, Via Natural or Artificial Opening Endoscopic (ICD-10-PCS; 2025-09-04)
PROC: 8E0ZXY6 Isolation (ICD-10-PCS; 2025-09-05)
DX: K56.699 Other intestinal obstruction unspecified as to partial versus complete obstruction (principal); C20 Malignant neoplasm of rectum; K59.09 Other constipation; Z93.2 Ileostomy status; Z92.21 Personal history of antineoplastic chemotherapy